=== PATIENT | male | born 1945 | race Caucasian/White ===

== ENCOUNTER 2017-07-06 08:44 | Inpatient (IN) | payer OTHER ==
[~2017-07-06] VITALS: Ht 180.3 cm; Wt 112.5 kg
--- NOTE | 2017-07-06 08:46 | EMERGENCY ROOM VISIT NOTE ---
ED Visit Note First contact with patient: 08:39 I have seen and examined this patient with Bruce Figueroa and generally agree with the treatment plan as discussed.
[2017-07-06] MEDS ORDERED: HYDROmorphone INJ 0.5 MG/0.5 ML SYR IV STA (08:51)
--- NOTE | 2017-07-06 09:00 | EMERGENCY ROOM VISIT NOTE ---
History First contact with patient: 08:41 Chief Complaint: ABDOMINAL PAIN Stated Complaint: ABDOMINAL PAIN Nursing Triage Summary: pt had gallbladder removed on Jun 21 at [facility] issues with surgery pt had leakage of bile into abd pt was given colostomy and inability to void, pt has manzo cath pt has no drainage in colostomy bag and scant in urine pt abd is distended and tender pt is poor historian on details of recent illness History of Present Illness The patient is a 72 year old male who presents to the Emergency Room via ambulance with complaints of "abdominal pain". The patient states that he is here today because he cannot urinate, but has severe lower abdominal pain. On June 21 he had a cholecystectomy performed at [facility], and since then he has had problems with bile and blood leaking internally. He states that she was then at [facility], and sent to [facility] and was discharged home yesterday. He notes that he awoke today and now has blood in his catheter, which is a Manzo catheter, as well as severe pain. He is tried urinate but only small dribbles come out. He has had 12 mg of morphine, and 4 mg of Zofran. A liter normal saline as well. He is still in pain rated as a 4-7/10. He denies any oral anticoagulants but notes he did have some at the hospital. He denies any chest pain, or shortness of breath. He denies any fevers or chills. He was also diagnosed with A. fib about 1 year ago following a seizure, but had done well until his second abdominal surgery over the past few weeks and developed A. fib again. Review of Systems A complete 10-point Review of Systems was discussed with the patient, with pertinent positives and negatives listed in the History of Present Illness. All remaining Review of Systems questions can be considered negative unless otherwise specified. Past Medical/Surgical History Medical Problems: (1) A-fib (2) Prostate abscess Cholecystectomy Family History No pertinent identified. Social History Smoking Status: Former Smoker Patient lives locally. Current/Historical Medications Scheduled Amoxicillin & Pot Clavulanate (Augmentin 875-125 mg), 1 TAB PO BID Aspirin (Aspirin 81), 81 MG PO DAILY Diltiazem Hcl Coated Beads (Cartia Xt), 300 MG PO DAILY Ezetimibe (Zetia), 10 MG PO DAILY Gabapentin (Neurontin), 300 MG PO TID Insulin Glargine (Lantus Solostar), 35 UNITS SC DAILY Insulin Lispro (Human) (Humalog), 6 UNITS SQ TID Levetiracetam (Keppra), 1,500 MG PO BID Levofloxacin (Levaquin), 500 MG PO DAILY Metoprolol Succ (Toprol Xl) (Toprol-Xl), 50 MG PO DAILY Pantoprazole (Protonix), 40 MG PO DAILY Potassium Ext Rel (Klor-Con), 20 MEQ PO BID Sertraline (Zoloft), 100 MG PO QAM Tamsulosin HCl (Tamsulosin HCl), 0.4 MG PO BID Physical Exam Vital Signs Date Time Temp Pulse Resp B/P (MAP) Pulse Ox O2 Delivery O2 Flow Rate FiO2 07/06/17 13:38 96 18 115/74 100 Room Air 07/06/17 13:15 98 Nasal Cannula 2.0 07/06/17 11:51 103 18 131/93 98 Nasal Cannula 2.0 07/06/17 10:00 98 20 102/68 95 07/06/17 09:23 94 07/06/17 09:20 113 21 106/59 94 Nasal Cannula 2.0 07/06/17 09:18 96 Nasal Cannula 2.0 07/06/17 08:54 36.7 93 20 130/72 92 Room Air Physical Exam VITAL SIGNS - Vital signs and nursing notes were reviewed. Stable. GENERAL -72-year-old male appearing his stated age who is in no acute distress. Communicates well with provider and answers questions appropriately. SKIN - there is bruising noted to the patient's left arm, abdomen likely from the surgical site. These are healing. HEAD - NC/AT. EYES - Sclera anicteric. EARS - No deformities of external structures noted on gross examination bilaterally. NOSE - Midline and without cyanosis. No epistaxis or purulent drainage noted. MOUTH/OROPHARYNX - Without perioral cyanosis. LUNGS - Chest wall symmetric without accessory muscle use, intercostals retractions, or central cyanosis. Normal vesicular breath sounds CTA B/L. No wheezes, rales, or rhonchi appreciated. CARDIAC - RRR with S1/S2. No murmur, rubs, or gallops appreciated. ABDOMEN - Abdominal contour normal without pulsations or visible masses. BS normoactive all four quadrants. There is inferior quadrant tenderness noted. Most of this is suprapubic. There is also a drain like apparatus in the inferior R quadrant. Manzo catheter in place. No palpable masses, hepatosplenomegaly, or ascites noted. EXTREMITIES - No clubbing or peripheral cyanosis. No pretibial edema present. NEUROLOGIC - Cranial nerves II through XII grossly intact. PSYCH - A&O, and cooperates fully with examiner. Pt is very pleasant and interacts well with examiner. Medical Decision & Procedures ER Provider Diagnostic Interpretation: CHEST ONE VIEW PORTABLE CLINICAL HISTORY: 72 years-old Male presenting with Pt c/o b/l leg swelling. TECHNIQUE: Portable upright AP view of the chest was obtained. COMPARISON: None. FINDINGS: Atherosclerosis of the aortic arch. Mildly tortuous descending thoracic aorta. Mildly prominent cardiac silhouette, which may be due to portable AP technique. Slight elevation of the left hemidiaphragm with bandlike opacity in the left lung base. No other focal infiltrate. No large effusion or pneumothorax. Osseous structures normal. Upper abdomen normal. IMPRESSION: 1. Left basilar atelectasis or scarring. 2. Cardiac silhouette mildly prominent, which may be due to portable AP technique. Electronically signed by: Garth Murry M.D. 07/06/2017 10:33 AM Dictated Date/Time: 07/06/2017 10:31 AM ABD/PELVIS IV CONTRAST ONLY CLINICAL HISTORY: 72 years-old Male presenting with Abdominal pain, history of cholecystectomy on 06/21/2017 at outside hospital, subsequent bile leak, colostomy, decreased urine output, distended and tender abdomen. TECHNIQUE: Multidetector CT of the abdomen and pelvis was performed after the administration of intravenous contrast. IV contrast: 92 mL of Optiray 320. A dose lowering technique was used consistent with the principles of ALARA (as low as reasonably achievable). COMPARISON: None. CT DOSE (mGy.cm): The estimated cumulative dose is 1457.72 mGy.cm. FINDINGS: Jewel Supervisor topogram: Unremarkable. Lung bases: Solid 3 mm subpleural pulmonary nodule in the right middle lobe (series 2 image 10). Minimal dependent changes in the left lung likely atelectasis. Mild enlargement of the left atrium suggested. Aortic valve calcification. No pericardial or pleural effusion. Liver: Congenital hypoplasia of the medial segments of the left hepatic lobe. No focal lesion. Patent hepatic vasculature. Biliary: No intrahepatic or extrahepatic biliary ductal dilatation. A common bile duct stent is in place, the superior extent terminating in the common duct immediately superior to the pancreatic head and the inferior extent terminating in the duodenum. Postsurgical changes of cholecystectomy. Fat infiltration noted in the gallbladder fossa without a focal fluid collection. No subcapsular fluid around the liver. Pancreas: Moderate parenchymal atrophy. Spleen: Parenchymal calcification may indicate prior granulomatous infection. Adrenal glands: Normal. Kidneys and ureters: Normal. No hydronephrosis. Bladder: Decompressed with a Manzo catheter. Associated intraluminal gas. Mild perivesicular inflammatory change anteriorly. Pelvic organs: Enlarged prostate containing multifocal regions of hypodensity, most prominently in a U shaped configuration along the posterior lateral aspect of the urethra, measuring up to 4.0 cm in transverse dimension. Bowel: Minimal reactive bowel wall thickening of the hepatic flexure. Appendix nonvisualized. No bowel obstruction. Several loops of small bowel are in direct apposition to the anterior abdominal wall subjacent to periumbilical inflammatory change and fluid. No ostomy is definitively visualized. Peritoneal cavity: No free fluid or intraperitoneal gas. Vasculature: Atherosclerosis of the normal caliber abdominal aorta. IVC patent. Lymph nodes: No enlarged lymph nodes in the abdomen or pelvis. Abdominal wall: Mild anasarca. Focal laminar fluid along the right anterior abdominal wall measuring 1.0 x 5.9 cm (series 2 image 62). 2 adjacent lobular collections of fluid are noted near the midline in the periumbilical region, one measuring 1.6 cm in diameter and the second deeper collection measuring 2.6 cm. Small fat-containing umbilical hernia. Musculoskeletal: Degenerative changes of the spine. IMPRESSION: 1. Inflammatory change in the gallbladder fossa without evidence of a fluid collection or bile leak on the today's imaging. This could be consistent with evolving postoperative changes of cholecystectomy. 2. Common bile duct stent. No biliary ductal dilatation. 3. No ostomy is appreciated. 4. Prostatomegaly with apparent fluid collection within the prostate. This raises concern for an abscess. This would be better demonstrated with contrast-enhanced MR of the prostate. Mild perivesicular fat stranding could indicate associated cystitis. Correlate with urinalysis. 5. Several superficial fluid collections in the anterior abdominal wall. These may represent seromas, although superimposed infection cannot be excluded given the adjacent fat stranding. 6. Mild anasarca. 7. 3 mm solid pulmonary nodule in the right middle lobe. Follow-up per Valent[employer] Society 2017 recommendations below. Please refer to below summary of Fleischner Society 2017 recommendations for follow-up of incidental CT nodules (Nuria Arredondo et al. Guidelines for management of incidental pulmonary nodules detected on CT images: From the Fleischner Society 2017. Radiology 2017; 284: 228-243.) SOLID NODULES Single nodule; size < 6 mm * Low risk patients: No routine follow-up * High risk patients: Optional CT at 12 months Single nodule; size 6-8 mm * Low risk patients: CT at 6-12 months, then consider CT at 18-24 months * High risk patients: CT at 6-12 months, then at 18-24 months Single nodule; size > 8 mm * Either low or high risk patients: Considered CT at 3 months, PET/CT, or tissue sampling Multiple nodules; size < 6 mm * Low risk patients: No routine follow up * High risk patients: Optional CT at 12 months Multiple nodules; size 6-8 mm * Low risk patients: CT at 3-6 months, then consider CT at 18-24 months * High risk patients: CT at 3-6 months, then at 18-24 months Multiple nodules; size > 8 mm * Low risk patients: CT at 3-6 months, then consider at 18-24 months * High risk patients: CT at 3-6 months, then at 18-24 months Note: These guidelines apply to incidental nodules. These guidelines do not apply to patients younger than 35 years, immunocompromised patients, or patients with cancer. * Low risk patients: Minimal or absent history of smoking and/or other known risk factors * High risk patients: History of smoking, exposure to other carcinogens, emphysema, fibrosis, upper lobe location, family history of lung cancer, etc. * If a nodule up to 8 mm is partly solid or is ground glass, further follow-up is required after 24 months to exclude possible slow growing adenocarcinoma. SUBSOLID NODULES Single ground-glass nodule * Nodule size < 6 mm: No routine follow-up * Nodule size > or = 6 mm: CT at 6-12 months to confirm persistence, then CT every 2 years until 5 years Single part-solid nodule * Nodule size < 6 mm: No routine follow-up * Nodules size > or = 6 mm: CT at 3-6 months to confirm persistence. If unchanged and solid component remains < 6 mm, annual CT should be performed for 5 years Multiple nodules * Nodule size < 6 mm: CT at 3-6 months. If stable, consider CT at 2 and 4 years. * Nodules size > or = 6 mm: CT at 3-6 months. Subsequent management based on the most suspicious nodule(s) VENOUS DOPPLER LWR EXT BILA CLINICAL HISTORY: 72 years-old Male presenting with Pt c/o b/l leg swelling. TECHNIQUE: Real-time grayscale and color and spectral Doppler ultrasound imaging of the veins of the bilateral lower extremities was performed. Compression and augmentation were also utilized. COMPARISON: None. FINDINGS: Right: Common femoral vein: Patent. Femoral vein: Patent. The mid and distal right femoral vein are poorly visualized. Greater saphenous vein: Patent. Popliteal vein: Patent. Calf veins: Patent. Left: Common femoral vein: Patent. Femoral vein: Patent. Greater saphenous vein: Patent. Popliteal vein: Patent. Calf veins: Patent. Other: Subcutaneous edema bilaterally. IMPRESSION: No evidence of deep venous thrombosis. Electronically signed by: Garth Murry M.D. 07/06/2017 11:48 AM Dictated Date/Time: 07/06/2017 11:47 AM Laboratory Results 07/06/17 08:10 Red Blood Count 5.30, Mean Corpuscular Volume 86.4, Mean Corpuscular Hemoglobin 30.9, Mean Corpuscular Hemoglobin Concent 35.8, Mean Platelet Volume 9.3, Neutrophils (%) (Auto) 87.5, Lymphocytes (%) (Auto) 3.7, Monocytes (%) (Auto) 7.5, Eosinophils (%) (Auto) 0.6, Basophils (%) (Auto) 0.1, Neutrophils # (Auto) 12.72, Lymphocytes # (Auto) 0.53, Monocytes # (Auto) 1.09, Eosinophils # (Auto) 0.08, Basophils # (Auto) 0.01 07/06/17 08:10 Test 07/06/17 08:10 07/06/17 09:06 07/06/17 10:07 White Blood Count 14.51 K/uL (4.8-10.8) Red Blood Count 5.30 M/uL (4.7-6.1) Hemoglobin 16.4 g/dL (14.0-18.0) Hematocrit 45.8 % (42-52) Mean Corpuscular Volume 86.4 fL (80-100) Mean Corpuscular Hemoglobin 30.9 pg (25-34) Mean Corpuscular Hemoglobin Concent 35.8 g/dl (32-36) Platelet Count 371 K/uL (130-400) Mean Platelet Volume 9.3 fL (7.4-10.4) Neutrophils (%) (Auto) 87.5 % Lymphocytes (%) (Auto) 3.7 % Monocytes (%) (Auto) 7.5 % Eosinophils (%) (Auto) 0.6 % Basophils (%) (Auto) 0.1 % Neutrophils # (Auto) 12.72 K/uL (1.4-6.5) Lymphocytes # (Auto) 0.53 K/uL (1.2-3.4) Monocytes # (Auto) 1.09 K/uL (0.11-0.59) Eosinophils # (Auto) 0.08 K/uL (0-0.5) Basophils # (Auto) 0.01 K/uL (0-0.2) RDW Standard Deviation 41.6 fL (36.4-46.3) RDW Coefficient of Variation 13.1 % (11.5-14.5) Immature Granulocyte % (Auto) 0.6 % Immature Granulocyte # (Auto) 0.08 K/uL (0.00-0.02) Prothrombin Time 12.0 SECONDS (9.0-12.0) Prothromb Time International Ratio 1.1 (0.9-1.1) Activated Partial Thromboplast Time 28.7 SECONDS (21.0-31.0) Partial Thromboplastin Ratio 1.1 Anion Gap 9.0 mmol/L (3-11) Est Creatinine Clear Calc Drug Dose 115.5 ml/min Estimated GFR () 107.3 Estimated GFR (Non- 92.5 BUN/Creatinine Ratio 22.2 (10-20) Calcium Level 8.6 mg/dl (8.5-10.1) Magnesium Level 1.7 mg/dl (1.8-2.4) Total Bilirubin 1.7 mg/dl (0.2-1) Aspartate Amino Transf (AST/SGOT) 21 U/L (15-37) Alanine Aminotransferase (ALT/SGPT) 34 U/L (12-78) Alkaline Phosphatase 199 U/L (45-117) Total Protein 6.2 gm/dl (6.4-8.2) Albumin 2.5 gm/dl (3.4-5.0) Globulin 3.7 gm/dl (2.5-4.0) Albumin/Globulin Ratio 0.7 (0.9-2) Urine Color YELLOW Urine Appearance CLOUDY (CLEAR) Urine pH >= 9.0 (4.5-7.5) Urine Specific Viper 1.019 (1.000-1.030) Urine Protein NEG (NEG) Urine Glucose (UA) NEG (NEG) Urine Ketones NEG (NEG) Urine Occult Blood 2+ (NEG) Urine Nitrite NEG (NEG) Urine Bilirubin NEG (NEG) Urine Urobilinogen NEG (NEG) Urine Leukocyte Esterase SMALL (NEG) Urine WBC (Auto) 5-10 /hpf (0-5) Urine RBC (Auto) >30 /hpf (0-4) Urine Hyaline Casts (Auto) 0 /lpf (0-5) Urine Epithelial Cells (Auto) 5-10 /lpf (0-5) Urine Bacteria (Auto) NEG (NEG) Total Creatine Kinase 78 U/L (39-308) Creatine Kinase MB 2.2 ng/ml (0.5-3.6) Creatine Kinase MB Ratio 2.8 (0-3.0) Troponin I < 0.015 ng/ml (0-0.045) Pro-B-Type Natriuretic Peptide 118 pg/ml (0-900) Medications Administered Medications (Trade) Dose Ordered Sig/Lea Route Start Time Stop Time Status Last Admin Dose Admin Hydromorphone HCl (Dilaudid Inj) 0.5 mg NOW STAT IV 07/06/17 08:51 07/06/17 08:54 DC 07/06/17 09:00 0.5 MG Piperacillin Sod/ Tazobactam Sod (Zosyn Iv) 4.5 gm NOW STAT IV 07/06/17 12:12 07/06/17 12:13 DC 07/06/17 13:35 4.5 GM Medical Decision Patient was seen and evaluated as above. He presents to the ambulance for abdominal pain in the suprapubic region. He does have a Manzo in place with a scant amount of blood. No urine. This was irrigated, and drained greater than 1 L of urine. He was feeling much better. He was given 0.5 mg of Dilaudid. There is leukocytosis of 14.51. No anemia. Coags normal. No evidence of kidney failure. Alkaline phosphatase is high at 109. Troponin negative. EKG reveals A. fib. Glucose high at 164. Urine reveals 2+ blood, white blood cells. There are greater than 30 red blood cells. I suspect she medic Manzo insertion. Chest x-ray no acute process. Ultrasound of the lower extremities are negative for DVT. CT was obtained, reveals collection possible in the prostate. I discussed the case with the attending physician who also personally evaluated the patient, as well as Dr. Weinstein. He is the on-call urologist. He came to personally evaluate the patient, and did not feel that at this time there was a true abscess, but does recommend potentially Zosyn and closely watching the patient. Actively this is reasonable, and discussed this with the hospitalist Dr. Morales. He agreed to evaluate the patient. Please refer to further documentation regarding the patient's stay. In evaluation treatment this patient following differential diagnoses were entertained: Abscess, sepsis, infection, urinary retention, prostate enlargement , among others. Impression Primary Impression: Abdominal pain Additional Impression: A-fib Departure Information Dispostion Admitted as an inpatient Condition FAIR Patient Instructions My [facility] Problem Qualifiers Primary Impression: Abdominal pain Abdominal location: lower abdomen, unspecified Qualified Codes: R10.30 - Lower abdominal pain, unspecified
[2017-07-06 09:03] LABS: BASO % 0.1 %; BASO ABS # 0.01 K/uL (0-0.2); COMPLETE YES; EOS % 0.6 %; HEMATOCRIT 45.8 % (42-52); IG% 0.6 %; LYMPH % 3.7 %; LYMPH ABS # 0.53 K/uL (1.2-3.4); MEAN CELL VOLUME 86.4 fL (80-100); MEAN CORPUSCULAR HEMOGLOBIN 30.9 pg (25-34); MEAN CORPUSCULAR HGB CONC 35.8 g/dl (32-36); MEAN PLATELET VOLUME 9.3 fL (7.4-10.4); MONO % 7.5 %; NEUT % 87.5 %; PLATELET COUNT 371 K/uL (130-400); WHITE BLOOD COUNT 14.51 K/uL (4.8-10.8)
[2017-07-06 09:13] LABS: INR 1.1 (0.9-1.1); PARTIAL THROMBOPLASTIN RATIO 1.1
[2017-07-06] MEDS ORDERED: DILT300C21 PO (09:29)
[2017-07-06] MEDS ORDERED: NVLNI SQ (09:29)
[2017-07-06] MEDS ORDERED: POTA20TA16 PO (09:29)
[2017-07-06 09:32] LABS: BUN/CREATININE RATIO 22.2 (10-20); CALCIUM 8.6 mg/dl (8.5-10.1); CREATININE 0.72 mg/dl (0.60-1.40); MAGNESIUM 1.7 mg/dl (1.8-2.4); POTASSIUM 3.6 mmol/L (3.5-5.1)
[2017-07-06 09:35] LABS: ALB/GLOB RATIO 0.7 (0.9-2)
[2017-07-06] MEDS ORDERED: ASPI-435 PO (09:44)
[2017-07-06] MEDS ORDERED: METO50TA7 PO (09:44)
[2017-07-06] MEDS ORDERED: LEVO1TAB33 PO (09:44)
[2017-07-06] MEDS ORDERED: AMOX875T PO (09:44)
[2017-07-06] MEDS ORDERED: EZET10TA63 PO (09:44)
[2017-07-06] MEDS ORDERED: SERT-234 PO (09:44)
[2017-07-06] MEDS ORDERED: GABA-113 PO (09:44)
[2017-07-06] MEDS ORDERED: INSDGIPEN SC (09:44)
[2017-07-06] MEDS ORDERED: NVLGIPEN SQ (09:44)
[2017-07-06] MEDS ORDERED: LEVE750T PO (09:44)
[2017-07-06] MEDS ORDERED: PANT40TA PO (09:44)
[2017-07-06] MEDS ORDERED: FLM4 PO (09:44)
[2017-07-06] MEDS ORDERED: INSU100I SQ (09:45)
[2017-07-06 09:47] LABS: URINE APPEARANCE CLOUDY (CLEAR); URINE BILIRUBIN NEG (NEG); URINE COLOR YELLOW; URINE NITRITE NEG (NEG); URINE PH >= 9.0 (4.5-7.5); URINE SPECIFIC GRAVITY 1.019 (1.000-1.030); UROBILINOGEN NEG (NEG); ZZURINE CULT IF INDIC CATH NO
[2017-07-06 09:52] LABS: MANUAL MICROSCOPIC REQUIRED? NO; REVIEW REQ? NO
--- NOTE | 2017-07-06 10:34 | DIAGNOSTIC IMAGING REPORT ---
CHEST ONE VIEW PORTABLE CLINICAL HISTORY: 72 years-old Male presenting with Pt c/o b/l leg swelling. TECHNIQUE: Portable upright AP view of the chest was obtained. COMPARISON: None. FINDINGS: Atherosclerosis of the aortic arch. Mildly tortuous descending thoracic aorta. Mildly prominent cardiac silhouette, which may be due to portable AP technique. Slight elevation of the left hemidiaphragm with bandlike opacity in the left lung base. No other focal infiltrate. No large effusion or pneumothorax. Osseous structures normal. Upper abdomen normal. IMPRESSION: 1. Left basilar atelectasis or scarring. 2. Cardiac silhouette mildly prominent, which may be due to portable AP technique. Electronically signed by: Garth Murry M.D. 07/06/2017 10:33 AM Dictated Date/Time: 07/06/2017 10:31 AM
[2017-07-06] MEDS ORDERED: OPTIRAY 320 IV PRN (10:45)
[2017-07-06 10:47] LABS: CKMB/CK RATIO 2.8 (0-3.0)
--- NOTE | 2017-07-06 11:03 | DIAGNOSTIC IMAGING REPORT ---
ABD/PELVIS IV CONTRAST ONLY CLINICAL HISTORY: 72 years-old Male presenting with Abdominal pain, history of cholecystectomy on 06/21/2017 at outside hospital, subsequent bile leak, colostomy, decreased urine output, distended and tender abdomen. TECHNIQUE: Multidetector CT of the abdomen and pelvis was performed after the administration of intravenous contrast. IV contrast: 92 mL of Optiray 320. A dose lowering technique was used consistent with the principles of ALARA (as low as reasonably achievable). COMPARISON: None. CT DOSE (mGy.cm): The estimated cumulative dose is 1457.72 mGy.cm. 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 Lung bases: Solid 3 mm subpleural pulmonary nodule in the right middle lobe (series 2 image 10). Minimal dependent changes in the left lung likely atelectasis. Mild enlargement of the left atrium suggested. Aortic valve calcification. No pericardial or pleural effusion. Liver: Congenital hypoplasia of the medial segments of the left hepatic lobe. No focal lesion. Patent hepatic vasculature. Biliary: No intrahepatic or extrahepatic biliary ductal dilatation. A common bile duct stent is in place, the superior extent terminating in the common duct immediately superior to the pancreatic head and the inferior extent terminating in the duodenum. Postsurgical changes of cholecystectomy. Fat infiltration noted in the gallbladder fossa without a focal fluid collection. No subcapsular fluid around the liver. Pancreas: Moderate parenchymal atrophy. Spleen: Parenchymal calcification may indicate prior granulomatous infection. Adrenal glands: Normal. Kidneys and ureters: Normal. No hydronephrosis. Bladder: Decompressed with a Vargas catheter. Associated intraluminal gas. Mild perivesicular inflammatory change anteriorly. Pelvic organs: Enlarged prostate containing multifocal regions of hypodensity, most prominently in a U shaped configuration along the posterior lateral aspect of the urethra, measuring up to 4.0 cm in transverse dimension. Bowel: Minimal reactive bowel wall thickening of the hepatic flexure. Appendix nonvisualized. No bowel obstruction. Several loops of small bowel are in direct apposition to the anterior abdominal wall subjacent to periumbilical inflammatory change and fluid. No ostomy is definitively visualized. Peritoneal cavity: No free fluid or intraperitoneal gas. Vasculature: Atherosclerosis of the normal caliber abdominal aorta. IVC patent. Lymph nodes: No enlarged lymph nodes in the abdomen or pelvis. Abdominal wall: Mild anasarca. Focal laminar fluid along the right anterior abdominal wall measuring 1.0 x 5.9 cm (series 2 image 62). 2 adjacent lobular collections of fluid are noted near the midline in the periumbilical region, one measuring 1.6 cm in diameter and the second deeper collection measuring 2.6 cm. Small fat-containing umbilical hernia. Musculoskeletal: Degenerative changes of the spine. IMPRESSION: 1. Inflammatory change in the gallbladder fossa without evidence of a fluid collection or bile leak on the today's imaging. This could be consistent with evolving postoperative changes of cholecystectomy. 2. Common bile duct stent. No biliary ductal dilatation. 3. No ostomy is appreciated. 4. Prostatomegaly with apparent fluid collection within the prostate. This raises concern for an abscess. This would be better demonstrated with contrast-enhanced MR of the prostate. Mild perivesicular fat stranding could indicate associated cystitis. Correlate with urinalysis. 5. Several superficial fluid collections in the anterior abdominal wall. These may represent seromas, although superimposed infection cannot be excluded given the adjacent fat stranding. 6. Mild anasarca. 7. 3 mm solid pulmonary nodule in the right middle lobe. Follow-up per Valentino Society 2017 recommendations below. Please refer to below summary of Fleischner Society 2017 recommendations for follow-up of incidental CT nodules (H Maria Elena, et al. Guidelines for management of incidental pulmonary nodules detected on CT images: From the Fleischner Society 2017. Radiology 2017; 284: 228-243.) SOLID NODULES Single nodule; size < 6 mm * Low risk patients: No routine follow-up * High risk patients: Optional CT at 12 months Single nodule; size 6-8 mm * Low risk patients: CT at 6-12 months, then consider CT at 18-24 months * High risk patients: CT at 6-12 months, then at 18-24 months Single nodule; size > 8 mm * Either low or high risk patients: Considered CT at 3 months, PET/CT, or tissue sampling Multiple nodules; size < 6 mm * Low risk patients: No routine follow up * High risk patients: Optional CT at 12 months Multiple nodules; size 6-8 mm * Low risk patients: CT at 3-6 months, then consider CT at 18-24 months * High risk patients: CT at 3-6 months, then at 18-24 months Multiple nodules; size > 8 mm * Low risk patients: CT at 3-6 months, then consider at 18-24 months * High risk patients: CT at 3-6 months, then at 18-24 months Note: These guidelines apply to incidental nodules. These guidelines do not apply to patients younger than 35 years, immunocompromised patients, or patients with cancer. * Low risk patients: Minimal or absent history of smoking and/or other known risk factors * High risk patients: History of smoking, exposure to other carcinogens, emphysema, fibrosis, upper lobe location, family history of lung cancer, etc. * If a nodule up to 8 mm is partly solid or is ground glass, further follow-up is required after 24 months to exclude possible slow growing adenocarcinoma. SUBSOLID NODULES Single ground-glass nodule * Nodule size < 6 mm: No routine follow-up * Nodule size > or = 6 mm: CT at 6-12 months to confirm persistence, then CT every 2 years until 5 years Single part-solid nodule * Nodule size < 6 mm: No routine follow-up * Nodules size > or = 6 mm: CT at 3-6 months to confirm persistence. If unchanged and solid component remains < 6 mm, annual CT should be performed for 5 years Multiple nodules * Nodule size < 6 mm: CT at 3-6 months. If stable, consider CT at 2 and 4 years. * Nodules size > or = 6 mm: CT at 3-6 months. Subsequent management based on the most suspicious nodule(s) Electronically signed by: Garth Murry M.D. 07/06/2017 11:02 AM Dictated Date/Time: 07/06/2017 10:50 AM
--- NOTE | 2017-07-06 11:50 | DIAGNOSTIC IMAGING REPORT ---
VENOUS DOPPLER LWR EXT BILA CLINICAL HISTORY: 72 years-old Male presenting with Pt c/o b/l leg swelling. TECHNIQUE: Real-time grayscale and color and spectral Doppler ultrasound imaging of the veins of the bilateral lower extremities was performed. Compression and augmentation were also utilized. COMPARISON: None. FINDINGS: Right: Common femoral vein: Patent. Femoral vein: Patent. The mid and distal right femoral vein are poorly visualized. Greater saphenous vein: Patent. Popliteal vein: Patent. Calf veins: Patent. Left: Common femoral vein: Patent. Femoral vein: Patent. Greater saphenous vein: Patent. Popliteal vein: Patent. Calf veins: Patent. Other: Subcutaneous edema bilaterally. IMPRESSION: No evidence of deep venous thrombosis. Electronically signed by: Garth Murry M.D. 07/06/2017 11:48 AM Dictated Date/Time: 07/06/2017 11:47 AM
[2017-07-06] MEDS ORDERED: PIPERACILLIN/TAZOBACTAM 4.5 GM/100ML D5W IV STA (12:12)
--- NOTE | 2017-07-06 12:25 | Urology Consultation ---
History General Date of Service: Jul 06, 2017. Primary Care Physician: Lawanda Verdugo M.D. Pt seen a urologist before?: No History of Present Illness 72y/o male s/p cholecystectomy in [place] on 06/21 with numerous complications - initial surgery - uneventful - return to OR within 48hrs after port site hernia and bowel obstruction? - post procedure, started to have bile draining through a separate incision ( now covered with colostomy bag) - determined to have a missed duct? - endoscopic management in [place] - PICC line and IV abx now - recently discharged (family stating he was not doing well at the time of d/c) - in the midst of these other issues - diagnosed with afib and varying rate - urinary retention (numerous catheterizations during his hospitalization ( catheter in place at time of arrival here)) - they deny fevers in the past 24 hrs - some blood in the urine - some dysuria CT - appears to have some fluid within the central zone of the prostate - can't ro abscess - numerous other intra-abdominal findings as well - sounds as though he was obstructed on arrival here, and now reports significant improvement in his symptoms Imaging Imaging: CT Laboratory Labs were reviewed and are within normal limits unless listed below. Labs are available in the chart and at [facility] Past History A Fib, bowel obstruction, BPH Past Surgical History: cholecystectomy, other (endsocopic management of a bile duct leak; open ventral hernia repair; bowel obstruction/port site hernia repair ) Family History non-contrib in the acute setting Social History Hx Tobacco Use In Past Year?: No Marital status: Allergies Coded Allergies: Atorvastatin (Unverified Allergy, Unknown, UNKNOWN, 07/06/17) Carbamazepine (Unverified Allergy, Unknown, UNKNOWN, 07/06/17) Metformin (Unverified Allergy, Unknown, UNKNOWN, 07/06/17) Methadone (Unverified Allergy, Unknown, UNKNOWN, 07/06/17) Pravastatin (Unverified Allergy, Unknown, UNKNOWN, 07/06/17) Rosuvastatin (Unverified Allergy, Unknown, UNKNOWN, 07/06/17) Tramadol (Unverified Allergy, Unknown, UNKNOWN, 07/06/17) Medications Home Medications: Home Meds and Scripts Medications Dose Route/Sig Max Daily Dose Days Date Category Humalog (Insulin Lispro (Human)) 100 Unit/Ml Inj 6 Units SQ TID 07/06/17 Reported Tamsulosin HCl 0.4 Mg Cap 0.4 Mg PO BID 07/06/17 Reported Zoloft (Sertraline HCl) 100 Mg Tab 100 Mg PO QAM 07/06/17 Reported Keppra (Levetiracetam) 750 Mg Tab 1,500 Mg PO BID 07/06/17 Reported Zetia (Ezetimibe) 10 Mg Tab 10 Mg PO DAILY 07/06/17 Reported Aspirin 81 (Aspirin) 81 Mg Tab 81 Mg PO DAILY 07/06/17 Reported Lantus Solostar (Insulin Glargine) 100 Unit/Ml Inj 35 Units SC DAILY 07/06/17 Reported Toprol-Xl (Metoprolol Succinate) 50 Mg Tabcr 50 Mg PO DAILY 07/06/17 Reported Protonix (Pantoprazole Sodium) 40 Mg Tab 40 Mg PO DAILY 07/06/17 Reported Levaquin (Levofloxacin) 500 Mg Tab 500 Mg PO DAILY 7 07/06/17 Reported Neurontin (Gabapentin) 300 Mg Cap 300 Mg PO TID 07/06/17 Reported Augmentin 875-125 mg (Amoxicillin & Pot Clavulanate) 1 Tab Tab 1 Tab PO BID 07/06/17 Reported Cartia Xt (Diltiazem Hcl Coated Beads) 300 Mg Cap 300 Mg PO DAILY 07/06/17 Reported Klor-Con (Potassium Chloride) 20 Meq Tabcr 20 Meq PO BID 07/06/17 Reported Inpatient Medications: Current Inpatient Medications Medications (Trade) Dose Ordered Sig/Lea Route Start Time Stop Time Status Last Admin Dose Admin Ioversol (Optiray 320) 100 ml UD PRN IV 07/06/17 10:45 07/10/17 10:44 Review of Systems Review of Systems Constitutional: No see HPI, No fever, No chills, No frequent headaches, No weight loss, No problem reported Eyes: No see HPI, No blurred vision, No double vision, No eye pain, No loss of night vision, No problem reported Neurological: No see HPI, No dizzy, No passing out, No numbness/tingling, No seizures, No problem reported Gastrointestinal: + abdominal pain, + nausea, + vomiting Cardiovascular: + irregular heartbeat Respiratory: No shortness of breath Skin: + rash (significant ecchymosis of each arm\) Musculoskeletal: No see HPI, No joint pain, No neck pain, No back pain, No arthritis, No problem reported Blood / Lymphatic: No see HPI, No bleed easily, No bruise easily, No swollen glands, No problem reported Ears / Nose / Throat: No see HPI, No hearing loss, No sinus, No hoarse voice, No sore throat, No problem reported Psychologic / Mental: No see HPI, No nervous, No trouble remembering, No difficulty sleeping, No problem reported Male : + frequent urination, + painful urination, + urinary retention, + blood in urine All Other Systems: Reviewed and Negative Additional Comments: significant abdominal issues Physical Exam Vital Signs: Vital Signs Past 12 Hours Date Time Temp Pulse Resp B/P (MAP) Pulse Ox O2 Delivery O2 Flow Rate FiO2 07/06/17 11:51 103 18 131/93 98 Nasal Cannula 2.0 07/06/17 10:00 98 20 102/68 95 07/06/17 09:23 94 07/06/17 09:20 113 21 106/59 94 Nasal Cannula 2.0 07/06/17 09:18 96 Nasal Cannula 2.0 07/06/17 08:54 36.7 93 20 130/72 92 Room Air Physical Exam: General Appearance: no apparent distress (comfortable appearing) Eyes: bilateral eyes normal inspection ENT: hearing grossly normal Neck: no adenopathy Respiratory/Chest: no respiratory distress Cardiovascular: no edema, + tachycardia, + irregularly irregular Gastrointestinal: Abdomen: pertinent finding (colostomy over a periumbilical port with serous drainage. other incisions without purulence. NO rebound, no guarding, no significant erythema, no crepitus.) Bladder: normal bladder Renal: normal renal Genitourinary - Male: Penis: normal penis (catheter in place.) Anus / Perineum: normal anus/perineum (no erytjema, no fluctuance) Prostate: pertinent finding (deferred secondary to question of acute prostatitis) Neurologic/Psychiatric: alert, normal mood/affect, oriented x 3 Skin: warm/dry Lymphatic: no adenopathy Assessment & Plan Assessment & Plan Urinary retention; question of prostate abscess - all in the setting of a very complicated post cholecystectomy course - reviewed hx and imaging - discussed options with the family - the CT raises concerns for possible abscess, and his story would make him at high risk - clinically, he is not showing signs of acute prostatitis or abscess aside from a leukocytosis of 14K (with numerous other contributing factors) - I favor conservative management for now - IV abx - cont catheter - if he shows signs of clinical decline or symptoms consistent with prostate abscess --> contrast enhanced study and consideration of surgical drainage
[2017-07-06 13:15] VITALS: O2SAT 98; BMI 34.5
[2017-07-06] MEDS ORDERED: MAGNESIUM HYDROXIDE SUSP 30 ML UDC PO PRN (13:30)
[2017-07-06] MEDS ORDERED: NITROGLYCERIN 0.4 MG SL PER TAB CHARGE SL PRN (13:30)
[2017-07-06] MEDS ORDERED: ACETAMINOPHEN 325 MG TAB PO PRN (13:30)
[2017-07-06] MEDS ORDERED: ONDANSETRON INJ 2 MG/ML 2 ML VIAL IV PRN (13:30)
[2017-07-06] MEDS ORDERED: ALUMINUM/MAGNESIUM/SIMETH (MAALOX MAX) 30 ML UDC PO PRN (13:30)
[2017-07-06] MEDS ORDERED: HEPARIN IV LOW DOSE NO BOLUS STA (13:33)
[2017-07-06] MEDS ORDERED: PIPERACILL/TAZOBAC CONSULT ACTIVE PRN (13:45)
[2017-07-06] MEDS ORDERED: HEPARIN 25000 UNIT/500 ML D5W ONE (14:12)
[2017-07-06] MEDS: MoRPHine SULFATE 2 MG/ML CARP IV PRN (14:27)
--- NOTE | 2017-07-06 14:54 | HISTORY & PHYSICAL EXAMINATION ---
DATE OF ADMISSION: 07/06/2017 CHIEF COMPLAINT: Abdominal pain and unable to urinate. HISTORY OF PRESENT ILLNESS: This is a 72-year-old male with past medical history significant for seizures, hypertension, hyperlipidemia, type 2 diabetes who presents with unable to urinate and abdominal pain. The patient recently on 21 of June had cholecystectomy done at [facility] from which he developed complications for which he was readmitted. He was having some abdominal pain and was reoperated and as per he had a couple of sutures came out and they had to fix it. During the hospitalization he developed a rapid atrial fibrillation and was transferred to [facility] and at [facility] he was found to have small-bowel obstruction and bowel hernia and stayed there over a week.During his stay in [place] again he developed leakage leaking around his abdominal surgery and again endoscopy was done which showed any other gall bladder duct stented. He also has a colostomy bag. The patient had Vargas catheter because he was having issues with urinary retention from enlarged prostate but today morning he woke up he and had severe abdominal pain and was not able to urinate and he was brought in here. There was problem with catheter bulb and it was fixed and he is feeling better now but CAT scan done in the ER showed possible prostate abscess so urology saw him and advised to stay in the hospital. We were called for admission. The patient currently is hemodynamically stable. Denies any headaches, no blurred vision, has sore throat from recent procedure. No difficulty swallowing. No chest pain, no shortness of breath, no cough, no fever, no chills, no nausea, no abdominal pain currently. He also developed swelling in his legs since his hospitalization, he developed some whitish rash in his lower extremities and was attributed to Eliquis which was started at [place] and was stopped. Currently resting comfortably and hemodynamically stable. ALLERGIES: ATORVASTATIN, CARBAMAZEPINE, METFORMIN, METHADONE, PRAVASTATIN, TRAMADOL. PAST MEDICAL HISTORY: As mentioned above. PAST SURGICAL HISTORY: Excision of lipoma, incisional hernia repair, revision of the palate for obstructive sleep apnea. MEDICATIONS: The patient is on gabapentin 300 mg p.o. t.i.d., Flomax 0.4 mg p.o. b.i.d., Keppra 1500 mg p.o. b.i.d., Lantus 35 units at bedtime, insulin sliding scale, meloxicam, Levaquin 500 mg p.o. daily, Augmentin 1 tablet p.o. b.i.d., potassium chloride 20 mEq p.o. b.i.d., aspirin 81 mg p.o. daily, diltiazem 300 mg p.o. daily, Zetia 10 mg p.o. daily, Toprol-XL 50 mg p.o. daily, Protonix 40 mg p.o. daily, Zoloft 100 mg p.o. daily. FAMILY HISTORY: Significant for mother had diabetes. Father had peptic ulcer disease. SOCIAL HISTORY: Quit smoking in 1991. Social alcohol occasionally. No drug use. He is and lives with his . REVIEW OF SYMPTOMS: As per HPI. Rest of review of symptoms negative. PHYSICAL EXAMINATION: GENERAL: The patient is of moderate build, not in distress. VITAL SIGNS: Temperature 36.7, pulse 103, respiratory rate 18, blood pressure 131/93, oxygen 98 on 2 liters. HEAD, EYES, EARS, NOSE, AND THROAT: No pallor, no icterus. Pupils equal, round, and reactive to light. NECK: No JVD, no neck masses, no carotid bruits. CARDIOVASCULAR: S1, S2 heard. Regular rhythm, no murmur, no gallop. RESPIRATORY SYSTEM: Normal AP diameter. No accessory muscle use. No wheezing, no crackles. ABDOMEN: Soft, bowel sounds present. Nontender. No distention. CENTRAL NERVOUS SYSTEM: Cranial nerves II-XII grossly intact. Nonfocal. EXTREMITIES: No erythema. Lower extremity edema present, whitish papular rash seen in the lower extremities. Urinalysis positive for leukocyte esterase. LABORATORY DATA: WBC 14.5, hemoglobin 16.4, hematocrit 45.8, platelets 371. Sodium 138, potassium 3.6, chloride 101, bicarb 28, BUN 16, creatinine 0.7, serum glucose 164, calcium 8.6, magnesium 1.7, total bilirubin 1.7, AST 21, ALT 34, alkaline phosphatase 119, total creatine kinase 78. CK-MB 2.2, troponin I less than 0.015. PT 12.0, INR 1.1, PTT 28.7. Venous Doppler study, no evidence of DVT. Chest x-ray left bibasilar scaring unremarkable. CT of the abdomen and pelvis inflammatory changes in the gallbladder fossa without evidence of fluid collection or bile leak. This could be consistent with evolving postoperative changes of cholecystectomy, common bile duct stent, no biliary ductal dilatation. Prostatomegaly with apparent fluid collection within the prostate. This is concern for abscess. of prostate. possible cystitis. Superficial fluid collection in anterior abdominal wall, this may represent seroma or superimposed infection. mild anasarca, 3 mm solid pulmonary nodule in the right middle lobe. Followup recommended. EKG shows AFib with a rate of 94. No acute ST changes seen. ASSESSMENT AND PLAN: This is a 72-year-old male who presents with urinary retention, prostate abscess. 1. Urinary retention, possible prostate abscess. Started on IV Zosyn. The patient is on Vargas catheter, seen by urology. If no improvement plan for MR and possible drainage, monitor in the tele floor. 2. Atrial fibrillation diagnosed last year but no regular followup. Was in rapid Afib in the [facility] and transferred to [place]. Currently on Cardizem and metoprolol. Could not tolerate Eliquis. Will start on low dose IV heparin and consult cardiology in a.m. for further recommendations. 3. Recent cholecystectomy with complications, colostomy bag and biliary stent placement. Need followup. CAT scan showed some possible seroma vs infection abdominal wall. We will monitor. 4. Diabetes. Continue home Lantus. Will place him on insulin sliding scale. 5. History of seizures. Continue Keppra. 6. History of benign prostatic hypertrophy. Continue Flomax. 7. History of hyperlipidemia. Continue Zetia. 8. History of hypertension. Continue metoprolol and Cardizem. 9. History of depression. Continue Zoloft. 10. Deep venous thrombosis prophylaxis, low dose IV heparin. DISPOSITION: Admit to tele floor. 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 LEVEL 1 FULL CODE. MTDD
[2017-07-06] MEDS: HEPARIN 25,000 UNIT/500ML D5W 500 ML IV PRN ×2 (15:23→23:01)
[2017-07-06 15:45] VITALS: BP 110/70; PULSE 72; TEMP 36.5; O2SAT 99
[2017-07-06 16:00] VITALS: O2SAT 99
[2017-07-06] MEDS: GABAPENTIN 300 MG CAP PO SCH ×2 (16:40→21:01)
[2017-07-06 19:06] VITALS: BP 134/75; PULSE 91; TEMP 36.1; O2SAT 92
[2017-07-06] MEDS: TAMSULOSIN HCL 0.4 MG CAP PO SCH (21:01)
[2017-07-06] MEDS: PIPERACILL/TAZOBAC IV 4.5 GM in DEXTROSE 5% 100ML 100 ML IV SCH (21:02)
[2017-07-06] MEDS: LEVETIRACETAM 500 MG TAB PO SCH (21:02)
[2017-07-06 21:36] LABS: PARTIAL THROMBOPLASTIN RATIO 1.5
[2017-07-06] MEDS ORDERED: HEPARIN IV BOLUS 4,500 UNIT in SYRINGE 0 ML IV ONE (22:45)
[2017-07-06] MEDS ORDERED: INSULIN GLARGINE SOLOSTAR 100 UNITS/ML 3 ML PEN SC ONE (23:41)
[2017-07-06] MEDS ORDERED: INSULIN ASPART 100 UNITS/ML 3 ML PEN SC ONE (23:41)
[2017-07-06] MEDS ORDERED: GLUCAGON FOR INJ 1 MG VIAL SQ PRN (23:45)
[2017-07-06] MEDS ORDERED: GLUCOSE 10 TABS/TUBE PO PRN (23:45)
[2017-07-06] MEDS ORDERED: DEXTROSE 50% 50 ML SYR IV PRN (23:45)
[2017-07-06] MEDS ORDERED: SODIUM CHLORIDE 0.9% 1000ML 1,000 ML IV ONE (23:45)
[2017-07-06] MEDS ORDERED: GLUCOSE 40% GEL 15 GM TUBE PO PRN (23:45)
[2017-07-07] VITALS (9 sets, daily range): BP systolic 101–129; BP diastolic 59–75; PULSE 73–92; TEMP 36.5–37; O2SAT 92–98
[2017-07-07] MEDS ORDERED: MAGNESIUM SULFATE 1GM / D5W 1 GM in PREMIXED IN D5W 100 ML IV ONE
[2017-07-07] MEDS: MoRPHine SULFATE 2 MG/ML CARP IV PRN ×4 (00:22→20:23)
[2017-07-07] MEDS: PIPERACILL/TAZOBAC IV 4.5 GM in DEXTROSE 5% 100ML 100 ML IV SCH ×3 (04:00→20:09)
[2017-07-07 04:55] LABS: CALCIUM 7.8 mg/dl (8.5-10.1); CREATININE 0.68 mg/dl (0.60-1.40); MAGNESIUM 2.1 mg/dl (1.8-2.4); POTASSIUM 3.9 mmol/L (3.5-5.1)
[2017-07-07 04:59] LABS: PARTIAL THROMBOPLASTIN RATIO 2.3
[2017-07-07 05:41] LABS: BASO % 0.4 %; BASO ABS # 0.03 K/uL (0-0.2); COMPLETE YES; HEMATOCRIT 38.9 % (42-52); IG% 0.7 %; LYMPH % 8.9 %; LYMPH ABS # 0.74 K/uL (1.2-3.4); MEAN CELL VOLUME 88.6 fL (80-100); MEAN CORPUSCULAR HEMOGLOBIN 30.5 pg (25-34); MEAN CORPUSCULAR HGB CONC 34.4 g/dl (32-36); MEAN PLATELET VOLUME 8.9 fL (7.4-10.4); MONO % 8.3 %; NEUT % 76.7 %; PLATELET COUNT 264 K/uL (130-400); RED BLOOD COUNT 4.39 M/uL (4.7-6.1); WHITE BLOOD COUNT 8.27 K/uL (4.8-10.8)
[2017-07-07] MEDS ORDERED: INSULIN ASPART 100 UNITS/ML 3 ML PEN SC ONE (06:00)
[2017-07-07] MEDS ORDERED: INSULIN GLARGINE SOLOSTAR 100 UNITS/ML 3 ML PEN SC ONE (06:00)
[2017-07-07] MEDS ORDERED: INSULIN ASPART 100 UNITS/ML 3 ML PEN SC SCH (07:00)
[2017-07-07] MEDS: ASPIRIN 81 MG ECTAB PO SCH (08:20)
[2017-07-07] MEDS: TAMSULOSIN HCL 0.4 MG CAP PO SCH ×2 (08:20→20:09)
[2017-07-07] MEDS: GABAPENTIN 300 MG CAP PO SCH ×3 (08:21→20:09)
[2017-07-07] MEDS: LEVETIRACETAM 500 MG TAB PO SCH ×2 (08:21→20:09)
[2017-07-07] MEDS: PANTOprazole SOD 40 MG TAB PO SCH (08:21)
[2017-07-07] MEDS: METOPROLOL SUCC 50MG EXT REL TAB PO SCH (08:22)
[2017-07-07] MEDS: EZETIMIBE 10MG TAB PO SCH (08:22)
[2017-07-07] MEDS: SERTRALINE HCL 100 MG TAB PO SCH (08:22)
[2017-07-07] MEDS: INSULIN ASPART 100 UNITS/ML 3 ML PEN SC SCH ×4 (08:27→20:27)
[2017-07-07] MEDS ORDERED: INSULIN GLARGINE SOLOSTAR 100 UNITS/ML 3 ML PEN SC SCH ×2 (09:00→21:00)
[2017-07-07] MEDS ORDERED: DILTIAZEM HCL 300 MG CAPCR PO SCH (09:00)
--- NOTE | 2017-07-07 09:37 | Progress Note ---
Subjective Date of Service: Jul 07, 2017. Subjective Pt evaluation today including: conversation w/ patient, physical exam, chart review, lab review Voiding: manzo catheter in place Significant improvement overnight - some irritation in the penis, no other subjective complaints - no abdominal pain - no fevers - tolerating a diet Problem List Medical Problems: (1) Abdominal pain Status: Acute Review of Systems Constitutional: No see HPI, No fever, No chills, No sweats, No weight loss, No weakness, No fatigue, No problem reported Abdomen: + problem reported (continued clear/green tinted drainage from his umbilical incision (stoma bag ove it)), No pain, No nausea Objective Vital Signs Date Time Temp Pulse Resp B/P (MAP) Pulse Ox O2 Delivery O2 Flow Rate FiO2 07/07/17 07:35 36.7 75 17 101/75 (84) 96 Room Air 07/07/17 04:17 36.7 92 19 101/75 (84) 92 Room Air 07/07/17 04:00 Room Air 07/07/17 00:20 36.6 81 20 118/71 (87) 93 Room Air 07/07/17 00:00 Room Air 07/06/17 20:00 Room Air 07/06/17 19:06 36.1 91 18 134/75 (94) 92 Room Air 07/06/17 16:00 99 Nasal Cannula 2.0 07/06/17 15:45 36.5 72 24 110/70 (83) 99 Nasal Cannula 2.0 07/06/17 13:38 96 18 115/74 100 Room Air 07/06/17 13:15 98 Nasal Cannula 2.0 07/06/17 11:51 103 18 131/93 98 Nasal Cannula 2.0 07/06/17 10:00 98 20 102/68 95 Physical Exam General Appearance: no apparent distress Eyes: normal inspection ENT: hearing grossly normal Respiratory/Chest: no respiratory distress, no accessory muscle use Cardiovascular: no edema, + irregularly irregular Abdomen: non tender, soft, + pertinent finding (no signs of infection - stoma bag over his umbilical incision - clear/slightly green tinted drainage) Extremities: no pedal edema Neurologic/Psychiatric: alert, normal mood/affect, oriented x 3 Skin: warm/dry Lymphatic: no adenopathy Comments: manzo with clear urine Laboratory Results Last 24 Hours Test 07/06/17 10:07 07/06/17 16:10 07/06/17 20:01 07/06/17 21:14 Total Creatine Kinase 78 U/L Creatine Kinase MB 2.2 ng/ml Creatine Kinase MB Ratio 2.8 Troponin I < 0.015 ng/ml Pro-B-Type Natriuretic Peptide 118 pg/ml Bedside Glucose 222 mg/dl 299 mg/dl Activated Partial Thromboplast Time 39.6 SECONDS Partial Thromboplastin Ratio 1.5 Test 07/06/17 23:36 07/07/17 04:30 07/07/17 06:36 07/07/17 09:16 Bedside Glucose 242 mg/dl 267 mg/dl White Blood Count 8.27 K/uL Red Blood Count 4.39 M/uL Hemoglobin 13.4 g/dL Hematocrit 38.9 % Mean Corpuscular Volume 88.6 fL Mean Corpuscular Hemoglobin 30.5 pg Mean Corpuscular Hemoglobin Concent 34.4 g/dl Platelet Count 264 K/uL Mean Platelet Volume 8.9 fL Neutrophils (%) (Auto) 76.7 % Lymphocytes (%) (Auto) 8.9 % Monocytes (%) (Auto) 8.3 % Eosinophils (%) (Auto) 5.0 % Basophils (%) (Auto) 0.4 % Neutrophils # (Auto) 6.34 K/uL Lymphocytes # (Auto) 0.74 K/uL Monocytes # (Auto) 0.69 K/uL Eosinophils # (Auto) 0.41 K/uL Basophils # (Auto) 0.03 K/uL RDW Standard Deviation 44.0 fL RDW Coefficient of Variation 13.5 % Immature Granulocyte % (Auto) 0.7 % Immature Granulocyte # (Auto) 0.06 K/uL Activated Partial Thromboplast Time 59.9 SECONDS Partial Thromboplastin Ratio 2.3 Sodium Level 137 mmol/L Potassium Level 3.9 mmol/L Chloride Level 99 mmol/L Carbon Dioxide Level 32 mmol/L Anion Gap 6.0 mmol/L Blood Urea Nitrogen 14 mg/dl Creatinine 0.68 mg/dl Est Creatinine Clear Calc Drug Dose 123.2 ml/min Estimated GFR () 109.8 Estimated GFR (Non- 94.7 BUN/Creatinine Ratio 20.0 Random Glucose 268 mg/dl Calcium Level 7.8 mg/dl Magnesium Level 2.1 mg/dl Assessment and Plan Complicated post op course after cholecystectomy ; question of prostate abscess - CT is concerning, but clinically, he is doing quite well with conservative management - favor continuing this course rather than any surgical intervention right now ( very large prostate) - will need prostate directed abx for at least 14d - keep catheter for at least 48hrs longer - if home prior to that time, plan for outpt voiding trial next week - home with tamsulosin and finasteride (no meds prior to his cholecystectomy, but longstanding voiding difficulties)
[2017-07-07 10:00] LABS: CALCIUM 8.1 mg/dl (8.5-10.1); CREATININE 0.77 mg/dl (0.60-1.40); POTASSIUM 3.5 mmol/L (3.5-5.1)
--- NOTE | 2017-07-07 10:53 | Surgery Consultation ---
Consultation Date of Consultation: Jul 07, 2017. Attending Physician: Chano Saunders MD History of Present Illness pt with lap moreno done at an outside facility a couple of weeks ago complicated by a biliary leak...ERCP with stent placement was performed according to him about a week ago. he has also been dealing with urinary retention/prostatitis which is what brought him in this admission. his upper abdomen is feeling ok and he is eating/bowels moving etc... he does have some serous fluid with a tinge of bile coming out his umbilical incision. cardiology also seeing him for a-fib Past Medical/Surgical History Medical Problems: (1) Abdominal pain Status: Acute Social History Smoking Status: Former Smoker Marital Status: Allergies Coded Allergies: Atorvastatin (Unverified Allergy, Unknown, UNKNOWN, 07/06/17) Carbamazepine (Unverified Allergy, Unknown, UNKNOWN, 07/06/17) Metformin (Unverified Allergy, Unknown, UNKNOWN, 07/06/17) Methadone (Unverified Allergy, Unknown, UNKNOWN, 07/06/17) Pravastatin (Unverified Allergy, Unknown, UNKNOWN, 07/06/17) Rosuvastatin (Unverified Allergy, Unknown, UNKNOWN, 07/06/17) Tramadol (Unverified Allergy, Unknown, UNKNOWN, 07/06/17) Home Medications Scheduled Amoxicillin & Pot Clavulanate (Augmentin 875-125 mg), 1 TAB PO BID Aspirin (Aspirin 81), 81 MG PO DAILY Diltiazem Hcl Coated Beads (Cartia Xt), 300 MG PO DAILY Ezetimibe (Zetia), 10 MG PO DAILY Gabapentin (Neurontin), 300 MG PO TID Insulin Glargine (Lantus Solostar), 35 UNITS SC DAILY Insulin Lispro (Human) (Humalog), 6 UNITS SQ TID Levetiracetam (Keppra), 1,500 MG PO BID Levofloxacin (Levaquin), 500 MG PO DAILY Metoprolol Succ (Toprol Xl) (Toprol-Xl), 50 MG PO DAILY Pantoprazole (Protonix), 40 MG PO DAILY Potassium Ext Rel (Klor-Con), 20 MEQ PO BID Sertraline (Zoloft), 100 MG PO QAM Tamsulosin HCl (Tamsulosin HCl), 0.4 MG PO BID Current Inpatient Medications Current Inpatient Medications Medications (Trade) Dose Ordered Sig/Lea Route Start Time Stop Time Status Last Admin Dose Admin Ioversol (Optiray 320) 100 ml UD PRN IV 07/06/17 10:45 07/10/17 10:44 Acetaminophen (Tylenol Tab) 650 mg Q4H PRN PO 07/06/17 13:30 08/05/17 13:29 Al Hydrox/Mg Hydrox/Simethicone (Maalox Max Susp) 15 ml Q4H PRN PO 07/06/17 13:30 08/05/17 13:29 Magnesium Hydroxide (Milk Of Magnesia Susp) 30 ml Q12H PRN PO 07/06/17 13:30 08/05/17 13:29 Ondansetron HCl (Zofran Inj) 4 mg Q6H PRN IV 07/06/17 13:30 08/05/17 13:29 07/06/17 14:26 4 MG Nitroglycerin (Nitrostat Tab) 0.4 mg UD PRN SL 07/06/17 13:30 08/05/17 13:29 Aspirin (Ecotrin Tab) 81 mg DAILY PO 07/07/17 09:00 08/06/17 08:59 07/07/17 08:20 81 MG Diltiazem HCl (Cardizem Cd Cap) 300 mg DAILY PO 07/07/17 09:00 08/06/17 08:59 07/07/17 08:20 300 MG EZETIMIBE (Zetia Tab) 10 mg DAILY PO 07/07/17 09:00 08/06/17 08:59 07/07/17 08:22 10 MG Gabapentin (Neurontin Cap) 300 mg TID PO 07/06/17 16:00 08/05/17 15:59 07/07/17 08:21 300 MG Metoprolol Succinate (Toprol Xl Tab) 50 mg DAILY PO 07/07/17 09:00 08/06/17 08:59 07/07/17 08:22 50 MG Pantoprazole Sodium (Protonix Tab) 40 mg DAILY PO 07/07/17 09:00 08/06/17 08:59 07/07/17 08:21 40 MG Tamsulosin HCl (Flomax Cap) 0.4 mg BID PO 07/06/17 21:00 08/05/17 20:59 07/07/17 08:20 0.4 MG Piperacillin Sod/ Tazobactam Sod 4.5 gm/Dextrose 120 ml @ 30 mls/hr Q8H IV 07/06/17 20:00 07/16/17 13:59 07/07/17 04:00 30 MLS/HR Morphine Sulfate (MoRPHine SULFATE INJ) 2 mg Q3HWA PRN IV 07/06/17 13:30 07/20/17 13:29 07/07/17 08:38 2 MG Levetiracetam (Keppra Tab) 1,500 mg BID PO 07/06/17 21:00 08/05/17 20:59 07/07/17 08:21 1,500 MG Sertraline HCl (Zoloft Tab) 100 mg QAM PO 07/07/17 09:00 08/06/17 08:59 07/07/17 08:22 100 MG Piperacillin Sod/ Tazobactam Sod (Consult) 1 ea UD PRN N/A 07/06/17 13:45 08/05/17 13:44 Heparin Sodium/ Dextrose 500 ml @ 24 mls/hr [id number] PRN IV 07/06/17 15:15 08/05/17 15:14 07/06/17 23:01 24 MLS/HR Sodium Chloride 1,000 ml @ 75 mls/hr [id number] ONCE IV 07/06/17 23:45 07/07/17 13:04 07/07/17 00:14 75 MLS/HR Glucose (Glucose 40% Gel) 15-30 GRAMS 15 GRAMS... UD PRN PO 07/06/17 23:45 08/05/17 23:44 Glucose (Glucose Chew Tab) 4-8 Tablets 4 Tabl... UD PRN PO 07/06/17 23:45 08/05/17 23:44 Dextrose (Dextrose 50% 50ML Syringe) 25-50ML OF 50% DW IV FOR... UD PRN IV 07/06/17 23:45 08/05/17 23:44 Glucagon (Glucagon Inj) 1 mg UD PRN SQ 07/06/17 23:45 08/05/17 23:44 Insulin Aspart (novoLOG ASPART) SLIDING SCALE If C... ACHS SC 07/07/17 11:00 08/06/17 06:59 07/07/17 08:27 9 UNITS Insulin Glargine (Lantus Solostar Pen) 25 units BID SC 07/07/17 21:00 08/06/17 08:59 Finasteride (Proscar Tab) 5 mg QAM PO 07/07/17 10:00 08/06/17 09:59 UNV Review of Systems Abdomen: + pain Genitourinary - Male: + dysuria, + urinary retention Physical Exam Date Time Temp Pulse Resp B/P (MAP) Pulse Ox O2 Delivery O2 Flow Rate FiO2 07/07/17 08:00 96 Room Air 07/07/17 07:35 36.7 75 17 101/75 (84) 96 Room Air 07/07/17 04:17 36.7 92 19 101/75 (84) 92 Room Air 07/07/17 04:00 Room Air 07/07/17 00:20 36.6 81 20 118/71 (87) 93 Room Air 07/07/17 00:00 Room Air 07/06/17 20:00 Room Air 07/06/17 19:06 36.1 91 18 134/75 (94) 92 Room Air 07/06/17 16:00 99 Nasal Cannula 2.0 07/06/17 15:45 36.5 72 24 110/70 (83) 99 Nasal Cannula 2.0 07/06/17 13:38 96 18 115/74 100 Room Air 07/06/17 13:15 98 Nasal Cannula 2.0 07/06/17 11:51 103 18 131/93 98 Nasal Cannula 2.0 General Appearance: no apparent distress Head: normocephalic, atraumatic Eyes: EOMI, sclerae normal ENT: hearing grossly normal Neck: supple, no JVD Respiratory/Chest: no respiratory distress, no accessory muscle use Cardiovascular: + irregularly irregular Abdomen/GI: soft, + pertinent finding (ambika fluid with tinge of bile coming out umbilical incision) Neurologic/Psych: alert, oriented x 3 Skin: normal color, warm/dry, no rash Laboratory Results Last 24 Hours Test 07/06/17 16:10 07/06/17 20:01 07/06/17 21:14 07/06/17 23:36 Bedside Glucose 222 mg/dl 299 mg/dl 242 mg/dl Activated Partial Thromboplast Time 39.6 SECONDS Partial Thromboplastin Ratio 1.5 Test 07/07/17 04:30 07/07/17 06:36 07/07/17 09:16 White Blood Count 8.27 K/uL Red Blood Count 4.39 M/uL Hemoglobin 13.4 g/dL Hematocrit 38.9 % Mean Corpuscular Volume 88.6 fL Mean Corpuscular Hemoglobin 30.5 pg Mean Corpuscular Hemoglobin Concent 34.4 g/dl Platelet Count 264 K/uL Mean Platelet Volume 8.9 fL Neutrophils (%) (Auto) 76.7 % Lymphocytes (%) (Auto) 8.9 % Monocytes (%) (Auto) 8.3 % Eosinophils (%) (Auto) 5.0 % Basophils (%) (Auto) 0.4 % Neutrophils # (Auto) 6.34 K/uL Lymphocytes # (Auto) 0.74 K/uL Monocytes # (Auto) 0.69 K/uL Eosinophils # (Auto) 0.41 K/uL Basophils # (Auto) 0.03 K/uL RDW Standard Deviation 44.0 fL RDW Coefficient of Variation 13.5 % Immature Granulocyte % (Auto) 0.7 % Immature Granulocyte # (Auto) 0.06 K/uL Activated Partial Thromboplast Time 59.9 SECONDS Partial Thromboplastin Ratio 2.3 Sodium Level 137 mmol/L 137 mmol/L Potassium Level 3.9 mmol/L 3.5 mmol/L Chloride Level 99 mmol/L 99 mmol/L Carbon Dioxide Level 32 mmol/L 33 mmol/L Anion Gap 6.0 mmol/L 5.0 mmol/L Blood Urea Nitrogen 14 mg/dl 11 mg/dl Creatinine 0.68 mg/dl 0.77 mg/dl Est Creatinine Clear Calc Drug Dose 123.2 ml/min 107.9 ml/min Estimated GFR () 109.8 104.3 Estimated GFR (Non- 94.7 90.0 BUN/Creatinine Ratio 20.0 14.0 Random Glucose 268 mg/dl 218 mg/dl Calcium Level 7.8 mg/dl 8.1 mg/dl Magnesium Level 2.1 mg/dl 2.0 mg/dl Bedside Glucose 267 mg/dl Assessment & Plan s/p lap moreno with biliary leak ercp/stent already done no drainable fluid in abdomen on recent ct cont current tx. should resolve completely with time pt will f/u with his surgeon after d/c urology managing urologic issues discussed with primary service, cardiology,and urology.
[2017-07-07] MEDS ORDERED: POTASSIUM CHLORIDE 10 MEQ TABCR PO STA (11:13)
[2017-07-07] MEDS: FINASTERIDE 5 MG TAB PO SCH (12:02)
[2017-07-07] MEDS: HEPARIN 25,000 UNIT/500ML D5W 500 ML IV PRN (14:19)
[2017-07-07] MEDS ORDERED: WARFARIN SOD 5 MG TAB PO SCH (16:00)
--- NOTE | 2017-07-07 18:23 | Progress Note ---
Internal Med Progress Note Date of Service: Jul 07, 2017. Provider Documentation: SUBJECTIVE: resting comfortably eating fine no abdominal pain no nausea afebrile no chest pain or sob OBJECTIVE: Vital Signs-as noted below Exam: General-alert and awake. not in distress ENT-normal hearing Neck-no neck masses supple Lungs-cta b/l no wheezing or crackles Heart-s1 and s2 heard regular rate and rhythm no murmurs Abdomen-soft bowel sounds present non tender no distension s/p colostomy Extremities-no erythema pedal edema present Neuro-alert and awake moves extremities non focal Lab data as noted below. ASSESSMENT & PLAN: This is a 72-year-old male who presents with urinary retention, prostate abscess. 1. Urinary retention, possible prostate abscess. Started on IV Zosyn. The patient is on Vargas catheter, seen by urology. If no improvement plan for MR and possible drainage, monitor in the tele floor. Doing fine. To continue current tx for now and monitor. 2. Atrial fibrillation diagnosed last year but no regular followup. Was in rapid Afib in the [facility] and transferred to [place]. Currently on Cardizem and metoprolol. Could not tolerate Eliquis. Medication adjustments as per cardiology starting on Coumadin. 3. Recent cholecystectomy with complications, colostomy bag and biliary stent placement. Need followup. CAT scan showed some possible seroma vs infection abdominal wall. Appreciate surgery inputs. 4. Diabetes. Continue home Lantus. Will place him on insulin sliding scale.Will monitor. 5. History of seizures. Continue Keppra. 6. History of benign prostatic hypertrophy. Continue Flomax. adding Proscar. 7. History of hyperlipidemia. Continue Zetia. 8. History of hypertension. Continue metoprolol . will monitor. 9. History of depression. Continue Zoloft. 10. Deep venous thrombosis prophylaxis, scds DISPOSITION to be determined Vital Signs: Date Time Temp Pulse Resp B/P (MAP) Pulse Ox O2 Delivery O2 Flow Rate FiO2 07/07/17 16:00 96 Room Air 07/07/17 15:14 37.0 73 16 115/59 (77) 92 Room Air 07/07/17 12:09 36.5 91 19 129/64 (85) 98 07/07/17 12:00 95 Room Air 07/07/17 08:00 96 Room Air 07/07/17 07:35 36.7 75 17 101/75 (84) 96 Room Air 07/07/17 04:17 36.7 92 19 101/75 (84) 92 Room Air 07/07/17 04:00 Room Air 07/07/17 00:20 36.6 81 20 118/71 (87) 93 Room Air 07/07/17 00:00 Room Air 07/06/17 20:00 Room Air 07/06/17 19:06 36.1 91 18 134/75 (94) 92 Room Air Lab Results: Results Past 24 Hours Test 07/06/17 20:01 07/06/17 21:14 07/06/17 23:36 07/07/17 04:30 Range/Units Bedside Glucose 299 242 70-99 mg/dl Activated Partial Thromboplast Time 39.6 59.9 21.0-31.0 SECONDS Partial Thromboplastin Ratio 1.5 2.3 White Blood Count 8.27 4.8-10.8 K/uL Red Blood Count 4.39 4.7-6.1 M/uL Hemoglobin 13.4 14.0-18.0 g/dL Hematocrit 38.9 42-52 % Mean Corpuscular Volume 88.6 80-100 fL Mean Corpuscular Hemoglobin 30.5 25-34 pg Mean Corpuscular Hemoglobin Concent 34.4 32-36 g/dl Platelet Count 264 130-400 K/uL Mean Platelet Volume 8.9 7.4-10.4 fL Neutrophils (%) (Auto) 76.7 % Lymphocytes (%) (Auto) 8.9 % Monocytes (%) (Auto) 8.3 % Eosinophils (%) (Auto) 5.0 % Basophils (%) (Auto) 0.4 % Neutrophils # (Auto) 6.34 1.4-6.5 K/uL Lymphocytes # (Auto) 0.74 1.2-3.4 K/uL Monocytes # (Auto) 0.69 0.11-0.59 K/uL Eosinophils # (Auto) 0.41 0-0.5 K/uL Basophils # (Auto) 0.03 0-0.2 K/uL RDW Standard Deviation 44.0 36.4-46.3 fL RDW Coefficient of Variation 13.5 11.5-14.5 % Immature Granulocyte % (Auto) 0.7 % Immature Granulocyte # (Auto) 0.06 0.00-0.02 K/uL Sodium Level 137 136-145 mmol/L Potassium Level 3.9 3.5-5.1 mmol/L Chloride Level 99 98-107 mmol/L Carbon Dioxide Level 32 21-32 mmol/L Anion Gap 6.0 3-11 mmol/L Blood Urea Nitrogen 14 7-18 mg/dl Creatinine 0.68 0.60-1.40 mg/dl Est Creatinine Clear Calc Drug Dose 123.2 ml/min Estimated GFR () 109.8 Estimated GFR (Non- 94.7 BUN/Creatinine Ratio 20.0 10-20 Random Glucose 268 70-99 mg/dl Calcium Level 7.8 8.5-10.1 mg/dl Magnesium Level 2.1 1.8-2.4 mg/dl Test 07/07/17 06:36 07/07/17 09:16 07/07/17 11:24 07/07/17 16:11 Range/Units Bedside Glucose 267 135 113 70-99 mg/dl Sodium Level 137 136-145 mmol/L Potassium Level 3.5 3.5-5.1 mmol/L Chloride Level 99 98-107 mmol/L Carbon Dioxide Level 33 21-32 mmol/L Anion Gap 5.0 3-11 mmol/L Blood Urea Nitrogen 11 7-18 mg/dl Creatinine 0.77 0.60-1.40 mg/dl Est Creatinine Clear Calc Drug Dose 107.9 ml/min Estimated GFR () 104.3 Estimated GFR (Non- 90.0 BUN/Creatinine Ratio 14.0 -20 Random Glucose 218 70-99 mg/dl Calcium Level 8.1 8.5-10.1 mg/dl Magnesium Level 2.0 1.8-2.4 mg/dl
[2017-07-07] MEDS: INSULIN GLARGINE SOLOSTAR 100 UNITS/ML 3 ML PEN SC SCH (20:26)
[2017-07-07] MEDS ORDERED: METOPROLOL SUCC 25MG EXT REL TAB PO SCH (21:00)
--- NOTE | 2017-07-07 22:39 | CARDIOLOGY CONSULTATION ---
DATE OF CONSULTATION: 07/07/2017 REFERRING PHYSICIAN: Dr. Saunders. INDICATIONS: Atrial fibrillation. HISTORY OF PRESENT ILLNESS: The patient is a 72-year-old male whose history is notable for chronic seizure disorder, hypertension, hyperlipidemia; type 2 diabetes mellitus, insulin requiring; obstructive sleep apnea status post uvulectomy and chronic O2 supplementation who had recent complex history which included presentation with cholelithiasis, ultimately undergone cholecystectomy at [facility]. Postoperative course notable for recurrence of symptoms with incisional hernia and bowel obstruction. he underwent second surgery and then was transferred to [facility] with atrial fibrillation with rapid ventricular response. At that time, he was found to have a bile acid leak as well as urinary retention, probably urinary tract infection, per quick summation over records. The patient does carry a history from his own description of having had atrial fibrillation documented a year ago, uncertain whether this represented chronic versus paroxysmal event. While in hospital of [facility], he was begun on rate control therapies with Toprol and diltiazem and ultimately was discharged on Eliquis at time of release after complex course which included bilateral biliary stent placement. The patient presents now once again with complex symptoms which include urinary retention and possible prostate abscess. On presentation, he was found to be in atrial fibrillation with mildly elevated overall heart rate 90-105. He was not aware of his arrhythmias. Notes since hospital discharge Eliquis was discontinued due to ecchymotic changes of the arm, possible purpura. He is referred now for management of atrial fibrillation, on anticoagulation. Currently denies fevers or chills. Notes abdominal distention and pain is much improved. Notes no sense of tachypalpitations or irregular heart rhythm. Notes no headache or visual changes. Denies prior history of TIA or stroke, rheumatic fever or scarlet fever. Notes no bleeding disorder, melena, hematochezia, dysuria or hematuria, currently. PAST MEDICAL HISTORY: As per HPI. In addition, he carries a history of biopsy-proven peripheral myopathy with enzyme deficiency with mild restriction in activity tolerance. ALLERGIES: MULTIPLE AND INCLUDE ALL STATINS, CARBAMAZEPINE, METFORMIN, METHADONE AND TRAMADOL AND PROPOXYPHENE. PAST SURGICAL HISTORY: Notable for remote appendectomy, prior lipoma resection, cataract extraction, carpal tunnel release; as noted, laparoscopic cholecystectomy in 06/21/2017 with complicated course including biliary leak and incisional bowel herniorrhaphy with bowel obstruction. FAMILY HISTORY: Not specifically notable for cardiac disease. SOCIAL HISTORY: The patient resides in [place]. 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 He is a nonsmoker for greater than 15 years and uses rare alcoholic beverages. PHYSICAL EXAMINATION: GENERAL: The patient is a pleasant, age-appropriate male currently denying any acute distress. VITAL SIGNS: Heart rate 75, blood pressure is 101/75. He is afebrile at 36.7. Telemetry reveals atrial fibrillation with intermittently elevated ventricular response rates. HEENT: Normocephalic, atraumatic. Nares without discharge. Throat was clear. NECK: Supple without thyromegaly or lymphadenopathy. LUNGS: Notable for diminished breath sounds but are predominantly clear. CARDIOVASCULAR: Irregularly irregular There is no S3 gallop. ABDOMEN: Obese, soft. There is drainage out of the umbilical incision with ostomy bag covering EXTREMITIES: Without cyanosis or clubbing. There is 2+ dense dully lower extremity edema. LABORATORY DATA: On presentation, white cell count was 14.5, this morning of 8.2 with hemoglobin of 13.4. Sodium is 137, potassium is 3.5, chloride is 99, bicarbonate is 33, BUN is 11, and creatinine is 0.77. Albumin on presentation was 2.5 with total protein of 6.2. IMAGING DATA: Chest x-ray reveals no pulmonary edema. Abdominal CT on presentation revealed findings consistent with evolving changes of cholecystectomy, prostatomegaly with possible findings consistent with infection. EKG this morning reveals atrial fibrillation, heart rate 93, no ST segment changes or Q-waves. IMPRESSION: A 72-year-old male with complex history surrounding abdominal surgeries and urinary issues after prior cholecystectomy on 06/21/2017 complicated by biliary leak, incisional dehiscence as well as acute urologic issues. He currently has atrial fibrillation with controlled ventricular response rate, duration is uncertain, but appears to have begun at least 1 year ago. During hospitalization, medications were increased for rate and rhythm control and anticoagulation initially initiated with Eliquis with possible intolerance. RECOMMENDATIONS: Continue heparin with conversion to Coumadin if there are no surgical or urologic contraindications to doing so. We will optimize rate control therapies. Diltiazem may be leading to fluid retention. Will plan on increasing Toprol and reducing diltiazem, possibly discontinuing altogether. For ultimate rate control, echocardiogram will be ordered here. Laboratory studies were reviewed and demonstrate significant reduced albumin and protein levels consistent with a complex surgical history. Will follow patient in the hospital. GOLDY
[2017-07-08 00:11] VITALS: BP 126/75; PULSE 87; TEMP 36.8; O2SAT 93
[2017-07-08 04:18] VITALS: BP 113/46; PULSE 77; TEMP 36.6; O2SAT 92
[2017-07-08 04:34] LABS: BASO % 0.4 %; BASO ABS # 0.03 K/uL (0-0.2); COMPLETE YES; HEMATOCRIT 37.5 % (42-52); IG% 0.6 %; LYMPH % 11.7 %; LYMPH ABS # 0.98 K/uL (1.2-3.4); MEAN CELL VOLUME 89.5 fL (80-100); MEAN CORPUSCULAR HEMOGLOBIN 29.6 pg (25-34); MEAN CORPUSCULAR HGB CONC 33.1 g/dl (32-36); MEAN PLATELET VOLUME 8.9 fL (7.4-10.4); MONO % 7.3 %; PLATELET COUNT 241 K/uL (130-400); RED BLOOD COUNT 4.19 M/uL (4.7-6.1); WHITE BLOOD COUNT 8.36 K/uL (4.8-10.8)
[2017-07-08] MEDS: PIPERACILL/TAZOBAC IV 4.5 GM in DEXTROSE 5% 100ML 100 ML IV SCH (04:36)
[2017-07-08 04:51] LABS: PARTIAL THROMBOPLASTIN RATIO 1.8; PROTHROMBIN TIME (PATIENT) 10.9 SECONDS (9.0-12.0)
[2017-07-08 05:02] LABS: BUN/CREATININE RATIO 13.4 (10-20); CALCIUM 7.9 mg/dl (8.5-10.1); CREATININE 0.63 mg/dl (0.60-1.40); POTASSIUM 4.2 mmol/L (3.5-5.1)
[2017-07-08] MEDS: INSULIN ASPART 100 UNITS/ML 3 ML PEN SC SCH ×2 (07:34→11:59)
--- NOTE | 2017-07-08 07:43 | Surgery Progress Note ---
Surgery Progress Note Date of Service Jul 08, 2017. Subjective + feeling well pt feeling well/no complaints. Objective Vital Signs: Date Time Temp Pulse Resp B/P (MAP) Pulse Ox O2 Delivery O2 Flow Rate FiO2 07/08/17 04:18 36.6 77 19 113/46 (68) 92 Room Air 07/08/17 04:00 Room Air 07/08/17 00:11 36.8 87 20 126/75 (92) 93 Room Air 07/07/17 23:59 Room Air 07/07/17 20:00 Room Air 07/07/17 19:02 36.7 86 16 120/66 (84) 93 Room Air 07/07/17 16:00 96 Room Air 07/07/17 15:14 37.0 73 16 115/59 (77) 92 Room Air 07/07/17 12:09 36.5 91 19 129/64 (85) 98 07/07/17 12:00 95 Room Air 07/07/17 08:00 96 Room Air General Appearance: no apparent distress Head: normocephalic, atraumatic Respiratory/Chest: no respiratory distress, no accessory muscle use Abdomen: non tender, soft Laboratory Results: Results Past 24 Hours Test 07/07/17 09:16 07/07/17 11:24 07/07/17 16:11 07/07/17 20:11 Range/Units Sodium Level 137 136-145 mmol/L Potassium Level 3.5 3.5-5.1 mmol/L Chloride Level 99 98-107 mmol/L Carbon Dioxide Level 33 21-32 mmol/L Anion Gap 5.0 3-11 mmol/L Blood Urea Nitrogen 11 7-18 mg/dl Creatinine 0.77 0.60-1.40 mg/dl Est Creatinine Clear Calc Drug Dose 107.9 ml/min Estimated GFR () 104.3 Estimated GFR (Non- 90.0 BUN/Creatinine Ratio 14.0 10-20 Random Glucose 218 70-99 mg/dl Calcium Level 8.1 8.5-10.1 mg/dl Magnesium Level 2.0 1.8-2.4 mg/dl Bedside Glucose 135 113 155 70-99 mg/dl Test 07/08/17 04:23 07/08/17 06:48 Range/Units White Blood Count 8.36 4.8-10.8 K/uL Red Blood Count 4.19 4.7-6.1 M/uL Hemoglobin 12.4 14.0-18.0 g/dL Hematocrit 37.5 42-52 % Mean Corpuscular Volume 89.5 80-100 fL Mean Corpuscular Hemoglobin 29.6 25-34 pg Mean Corpuscular Hemoglobin Concent 33.1 32-36 g/dl Platelet Count 241 130-400 K/uL Mean Platelet Volume 8.9 7.4-10.4 fL Neutrophils (%) (Auto) 75.0 % Lymphocytes (%) (Auto) 11.7 % Monocytes (%) (Auto) 7.3 % Eosinophils (%) (Auto) 5.0 % Basophils (%) (Auto) 0.4 % Neutrophils # (Auto) 6.27 1.4-6.5 K/uL Lymphocytes # (Auto) 0.98 1.2-3.4 K/uL Monocytes # (Auto) 0.61 0.11-0.59 K/uL Eosinophils # (Auto) 0.42 0-0.5 K/uL Basophils # (Auto) 0.03 0-0.2 K/uL RDW Standard Deviation 44.2 36.4-46.3 fL RDW Coefficient of Variation 13.4 11.5-14.5 % Immature Granulocyte % (Auto) 0.6 % Immature Granulocyte # (Auto) 0.05 0.00-0.02 K/uL Prothrombin Time 10.9 9.0-12.0 SECONDS Prothromb Time International Ratio 1.0 0.9-1.1 Activated Partial Thromboplast Time 47.1 21.0-31.0 SECONDS Partial Thromboplastin Ratio 1.8 Sodium Level 141 136-145 mmol/L Potassium Level 4.2 3.5-5.1 mmol/L Chloride Level 103 98-107 mmol/L Carbon Dioxide Level 34 21-32 mmol/L Anion Gap 4.0 3-11 mmol/L Blood Urea Nitrogen 8 7-18 mg/dl Creatinine 0.63 0.60-1.40 mg/dl Est Creatinine Clear Calc Drug Dose 131.9 ml/min Estimated GFR () 113.3 Estimated GFR (Non- 97.8 BUN/Creatinine Ratio 13.4 10-20 Random Glucose 185 70-99 mg/dl Calcium Level 7.9 8.5-10.1 mg/dl Magnesium Level 2.0 1.8-2.4 mg/dl Bedside Glucose 153 70-99 mg/dl Assessment & Plan doing well from surgery abdominal fluid output appears to be decreasing ruben diet ok for d/c from surgery perspective f/u with his surgeon after d/c
[2017-07-08 08:00] VITALS: BP 116/74; PULSE 70; TEMP 36.5; O2SAT 94
[2017-07-08 08:20] VITALS: O2SAT 94
[2017-07-08] MEDS: EZETIMIBE 10MG TAB PO SCH (08:50)
[2017-07-08] MEDS: ASPIRIN 81 MG ECTAB PO SCH (08:50)
[2017-07-08] MEDS: GABAPENTIN 300 MG CAP PO SCH (08:51)
[2017-07-08] MEDS: METOPROLOL SUCC 50MG EXT REL TAB PO SCH (08:51)
[2017-07-08] MEDS: PANTOprazole SOD 40 MG TAB PO SCH (08:51)
[2017-07-08] MEDS: TAMSULOSIN HCL 0.4 MG CAP PO SCH (08:52)
[2017-07-08] MEDS: SERTRALINE HCL 100 MG TAB PO SCH (08:52)
[2017-07-08] MEDS: FINASTERIDE 5 MG TAB PO SCH (08:52)
[2017-07-08] MEDS: LEVETIRACETAM 500 MG TAB PO SCH (08:53)
[2017-07-08] MEDS: INSULIN GLARGINE SOLOSTAR 100 UNITS/ML 3 ML PEN SC SCH (08:56)
--- NOTE | 2017-07-08 09:41 | Progress Note ---
Subjective Date of Service: Jul 08, 2017. Subjective Pt evaluation today including: conversation w/ patient, chart review, lab review Voiding: manzo catheter in place (patent, draining clear, yellow urine) 72 yo male with prostatitis/prostatic abscess, incomplete bladder emptying. Pt reports he is feeling better today. Denies pain or hematuria. Remains on Zosyn. Manzo remains in place draining clear, yellow urine. Problem List Medical Problems: (1) Abdominal pain Status: Acute Review of Systems Constitutional: No fever, No chills Respiratory: No shortness of breath Cardiac: No chest pain Abdomen: No pain, No nausea, No vomiting Male : No hematuria Heme: No abnormal bleeding/bruising Objective Vital Signs Date Time Temp Pulse Resp B/P (MAP) Pulse Ox O2 Delivery O2 Flow Rate FiO2 07/08/17 09:23 Room Air 07/08/17 08:20 94 Room Air 07/08/17 08:00 36.5 70 16 116/74 (88) 94 Room Air 07/08/17 04:18 36.6 77 19 113/46 (68) 92 Room Air 07/08/17 04:00 Room Air 07/08/17 00:11 36.8 87 20 126/75 (92) 93 Room Air 07/07/17 23:59 Room Air 07/07/17 20:00 Room Air 07/07/17 19:02 36.7 86 16 120/66 (84) 93 Room Air 07/07/17 16:00 96 Room Air 07/07/17 15:14 37.0 73 16 115/59 (77) 92 Room Air 07/07/17 12:09 36.5 91 19 129/64 (85) 98 07/07/17 12:00 95 Room Air Physical Exam General Appearance: no apparent distress Eyes: normal inspection ENT: hearing grossly normal Neck: no JVD Respiratory/Chest: no respiratory distress, no accessory muscle use Cardiovascular: no JVD Extremities: normal inspection Neurologic/Psychiatric: alert, normal mood/affect, oriented x 3 Skin: normal color Laboratory Results Last 24 Hours Test 07/07/17 11:24 07/07/17 16:11 07/07/17 20:11 07/08/17 04:23 Bedside Glucose 135 mg/dl 113 mg/dl 155 mg/dl White Blood Count 8.36 K/uL Red Blood Count 4.19 M/uL Hemoglobin 12.4 g/dL Hematocrit 37.5 % Mean Corpuscular Volume 89.5 fL Mean Corpuscular Hemoglobin 29.6 pg Mean Corpuscular Hemoglobin Concent 33.1 g/dl Platelet Count 241 K/uL Mean Platelet Volume 8.9 fL Neutrophils (%) (Auto) 75.0 % Lymphocytes (%) (Auto) 11.7 % Monocytes (%) (Auto) 7.3 % Eosinophils (%) (Auto) 5.0 % Basophils (%) (Auto) 0.4 % Neutrophils # (Auto) 6.27 K/uL Lymphocytes # (Auto) 0.98 K/uL Monocytes # (Auto) 0.61 K/uL Eosinophils # (Auto) 0.42 K/uL Basophils # (Auto) 0.03 K/uL RDW Standard Deviation 44.2 fL RDW Coefficient of Variation 13.4 % Immature Granulocyte % (Auto) 0.6 % Immature Granulocyte # (Auto) 0.05 K/uL Prothrombin Time 10.9 SECONDS Prothromb Time International Ratio 1.0 Activated Partial Thromboplast Time 47.1 SECONDS Partial Thromboplastin Ratio 1.8 Sodium Level 141 mmol/L Potassium Level 4.2 mmol/L Chloride Level 103 mmol/L Carbon Dioxide Level 34 mmol/L Anion Gap 4.0 mmol/L Blood Urea Nitrogen 8 mg/dl Creatinine 0.63 mg/dl Est Creatinine Clear Calc Drug Dose 131.9 ml/min Estimated GFR () 113.3 Estimated GFR (Non- 97.8 BUN/Creatinine Ratio 13.4 Random Glucose 185 mg/dl Calcium Level 7.9 mg/dl Magnesium Level 2.0 mg/dl Test 07/08/17 06:48 07/08/17 08:31 Bedside Glucose 153 mg/dl Assessment and Plan A/P: Prostatitis, ? prostatic abscess, incomplete bladder emptying AFVSS. Pt clinically improving. OK for d/c home from perspective. Recommend d/c home with manzo catheter. Will plan for outpatient trial of void later this week or early next week. Recommend transitioning to 4 weeks of oral abx such as Cipro or Bactrim to fully tx for prostatitis prior to d/c home. Continue finasteride and tamsulosin at home as well. Will arrange for outpatient f/u with Dr. Weinstein. Thanks for allowing us to participate in this pt's care. Recall PRN issues. Discharge planning: home
[2017-07-08] MEDS: HEPARIN 25,000 UNIT/500ML D5W 500 ML IV PRN (10:48)
[2017-07-08 11:09] VITALS: BP 139/63; PULSE 70; TEMP 37; O2SAT 94
[2017-07-08] MEDS ORDERED: PIPERACILL/TAZOBAC IV 3.375 GM in DEXTROSE 5% 100ML IV SCH (12:00)
--- NOTE | 2017-07-08 12:01 | PROGRESS NOTE ---
DATE: 07/08/2017 CARDIOLOGY CONSULTATION FOLLOWUP NOTE The patient seen and examined. Chart, medications, telemetry reviewed. SUBJECTIVE: The patient feels substantially improved this morning. Notes no fevers, chills. Notes no abdominal pain and mild burning at urinary areas though substantially improved. Has an indwelling Vargas catheter. Notes no tachypalpitations, syncope or near syncope. Telemetry reveals conversion to sinus rhythm overnight. Appetite is good. OBJECTIVE: VITAL SIGNS: Heart rate is 70, blood pressure is 139/63. Telemetry reveals a sinus rhythm with atrial ectopic beats. NECK: Thin. There is no jugular venous distention. No carotid bruits. LUNGS: Clear to auscultation. CARDIOVASCULAR: Regular. There is no S3 gallop. ABDOMEN: Soft with mild distention. There is no rebound or guarding. EXTREMITIES: Reveal 1+ lower extremity edema. LABORATORY DATA: White cell count is 8.3, hemoglobin is 12.4. Sodium is 141, potassium is 4.2, chloride is 103, bicarbonate is 34, BUN is 8, and creatinine 0.63. IMPRESSION: A 72-year-old male with issues as follows: Paroxysmal atrial fibrillation, historically with recent exacerbation during acute illness, today in sinus rhythm. RECOMMENDATIONS: 1. Continue Toprol 50 mg twice per day. Would discontinue diltiazem altogether. Continue anticoagulation to be initiated as an outpatient with oral warfarin. We will make arrangements for cardiology followup in the next months' time. 2. Recent abdominal surgery and urologic issues driving heart rate issues, now under therapies.
[2017-07-08] MEDS ORDERED: PRS5 PO ×2 (13:09→13:11)
[2017-07-08] MEDS ORDERED: TRAM-10 PO (13:09)
[2017-07-08] MEDS ORDERED: LCTX PO ×2 (13:09→13:11)
[2017-07-08] MEDS ORDERED: TPRSR50 PO ×2 (13:09→13:11)
[2017-07-08] MEDS ORDERED: PHEN-775 PO ×2 (13:09→13:11)
[2017-07-08] MEDS ORDERED: CIPR-255 PO ×2 (13:09→13:11)
[2017-07-08] MEDS ORDERED: WARF1TAB PO ×2 (13:09→13:11)
[2017-07-08] MEDS ORDERED: WARF5TAB90 PO ×2 (13:09→13:11)
--- NOTE | 2017-07-08 13:25 | Discharge Instructions ---
Discharge Instructions Date of Service Jul 08, 2017. Admission Reason for Admission: Atrial Fibrillation; Prostate Abscess Discharge Discharge Diagnosis / Problem: PROSTRATE ABSCESS, A FIB Discharge Goals Goal(s): Decrease discomfort, Improve function Activity Recommendations Activity Limitations: per Instructions/Follow-up section (NO STRENOUS ACTIVITY UNTIL SEEN BY SURGERY, GI AND CARDIOLOGY) Lifting Limitations: no more than 5 pounds (UNTIL SEEN BY GI AND SURGERY) . Instructions / Follow-Up Instructions / Follow-Up FOLLOWUP WITH FAMILY DOCTOR ON July AT 2:05PM. FOLLOWUP WITH GI AND GENERAL SURGERY IN 1-2 WEEKS.FOR BILIARY STENT AND COLOSTOMY BAG. FOLLOWUP WITH UROLOGY IN ONE WEEK. ( [address] [facility] [place] [address] ). FOR PROSTRATE AND CRUZ CATHETER FOLLOWUP WITH CARDIOLOGY RODY DESHPANDE IN 3-4 WEEKS ( [address] [place] [address] ). FOR ATRIAL FIBRILLATION FOLLOWUP WITH COUMADIN CLINIC IN 2 - 3 DAYS FOR COUMADIN DOSING. COUMADIN 7MG ( ONE 5MG TAB AND TWO 1 MG TABLETS) PER ORAL DAILY IN EVENING UNTIL FURTHER INSTRUCTIONS FROM COUMADIN CLINIC. LAB: PT/INT IN 2-3 DAYS AND FOLLOW RESULTS WITH COUMADIN CLINIC. COUMADIN CLINIC NOTIFIED. LAB: CBC AND BMP WITH MG LEVELS IN ONE WEEK AND FOLLOW RESULTS WITH FAMILY DOCTOR. LAB: FOLLOWUP CEA LEVELS WITH FAMILY DOCTOR AND GI( ELEVATED?) TO CHECK BLOOD SUGARS DAILY TWO TO FOUR TIMES DAILY ( BEFORE BREAKFAST, LUNCH, DINNER AND BEFORE SLEEP) AND NOTE THE READINGS IN A LOG BOOK AND TO SHOW THEM TO FAMILY DOCTOR FOR FURTHER ADJUSTMENTS IN INSULIN REGIMEN. IF BLOOD SUGARS BELOW 80 TO DRINK ORANGE JUICE OR TAKE SUGAR AND CALL FAMILY DOCTOR. IF BLOOD SUGARS >300 CALL FAMILY DOCTOR. PLEASE GO THROUGH MEDICATION LIST CAREFULLY THERE HAS BEEN FEW CHANGES. Current Hospital Diet Patient's current hospital diet: Diabetes Type 2 Diet, AHA Diet (Heart Healthy) Discharge Diet Recommended Diet: AHA Diet (Heart Healthy), Diabetes Type 2 Diet Pending Studies Studies pending at discharge: no Laboratory Results Hemoglobin A1c Test 07/07/17 04:30 Range/Units Estimated Average Glucose 183 mg/dl Hemoglobin A1c 8.0 H 4.5-5.6 % Medical Emergencies . Who to Call and When: Medical Emergencies: If at any time you feel your situation is an emergency, please call 911 immediately. . Non-Emergent Contact Non-Emergency issues call your: Primary Care Provider . . "Provider Documentation" section prepared by Chano Saunders. . VTE Core Measure Inpt VTE Proph given/why not?: Warfarin (Coumadin), Other Anticoagulation (IV HEPARIN)
[2017-07-08 13:54] VITALS: BP 139/63; PULSE 70; TEMP 37; O2SAT 94
[2017-07-08 14:34] VITALS: Ht 180.3 cm; Wt 112.5 kg
--- NOTE | 2017-07-08 19:18 | Progress Note ---
Internal Med Progress Note Date of Service: Jul 08, 2017. Provider Documentation: SUBJECTIVE: resting comfortably eating ok denies any abdominal pain or nausea afebrile ambulating ok 'want to go home OBJECTIVE: Vital Signs-as noted below Exam: General-alert and awake. not in distress ENT-normal hearing Neck-no neck masses supple Lungs-cta b/l no wheezing or crackles Heart-s1 and s2 heard regular rate and rhythm no murmurs Abdomen-soft bowel sounds present non tender no distension s/p colostomy Extremities-no erythema pedal edema present Neuro-alert and awake moves extremities non focal Lab data as noted below. ASSESSMENT & PLAN: This is a 72-year-old male who presents with urinary retention, prostate abscess. 1. Urinary retention, possible prostate abscess. Started on IV Zosyn. The patient is on Vargas catheter, seen by urology. If no improvement plan for MR and possible drainage, monitor in the tele floor. Doing fine. cx no growth urology recommends 4 weeks of cipro and followup in one week for Vargas removal and voiding trial 2. Atrial fibrillation diagnosed last year but no regular followup. Was in rapid Afib in the [facility] and transferred to [place]. Currently on Cardizem and metoprolol. Could not tolerate Eliquis. Medication adjustments as per cardiology starting on Coumadin.stopped Cardizem . Toprol xl increased to 50mg bid. started on Coumadin followup with cardiology and Coumadin clinic. 3. Recent cholecystectomy with complications, colostomy bag and biliary stent placement. Need followup. CAT scan showed some possible seroma vs infection abdominal wall. Appreciate surgery inputs. Followup with GI and General surgery. 4. Diabetes. Continue home Lantus. Will place him on insulin sliding scale.Will monitor.d/c on home meds close followup with pcp 5. History of seizures. Continue Keppra. 6. History of benign prostatic hypertrophy. Continue Flomax. adding Proscar. 7. History of hyperlipidemia. Continue Zetia. 8. History of hypertension. Continue metoprolol . will monitor. 9. History of depression. Continue Zoloft. 10. Deep venous thrombosis prophylaxis, scds Discharged home with home health Vital Signs: Date Time Temp Pulse Resp B/P (MAP) Pulse Ox O2 Delivery O2 Flow Rate FiO2 07/08/17 13:54 37.0 70 16 94 Room Air 07/08/17 12:10 Room Air 07/08/17 11:09 37.0 70 16 139/63 (88) 94 07/08/17 09:23 Room Air 07/08/17 08:20 94 Room Air 07/08/17 08:00 36.5 70 16 116/74 (88) 94 Room Air 07/08/17 04:18 36.6 77 19 113/46 (68) 92 Room Air 07/08/17 04:00 Room Air 07/08/17 00:11 36.8 87 20 126/75 (92) 93 Room Air 07/07/17 23:59 Room Air 07/07/17 20:00 Room Air Lab Results: Results Past 24 Hours Test 07/07/17 20:11 07/08/17 04:23 07/08/17 06:48 07/08/17 08:31 Range/Units Bedside Glucose 155 153 70-99 mg/dl White Blood Count 8.36 4.8-10.8 K/uL Red Blood Count 4.19 4.7-6.1 M/uL Hemoglobin 12.4 14.0-18.0 g/dL Hematocrit 37.5 42-52 % Mean Corpuscular Volume 89.5 80-100 fL Mean Corpuscular Hemoglobin 29.6 25-34 pg Mean Corpuscular Hemoglobin Concent 33.1 32-36 g/dl Platelet Count 241 130-400 K/uL Mean Platelet Volume 8.9 7.4-10.4 fL Neutrophils (%) (Auto) 75.0 % Lymphocytes (%) (Auto) 11.7 % Monocytes (%) (Auto) 7.3 % Eosinophils (%) (Auto) 5.0 % Basophils (%) (Auto) 0.4 % Neutrophils # (Auto) 6.27 1.4-6.5 K/uL Lymphocytes # (Auto) 0.98 1.2-3.4 K/uL Monocytes # (Auto) 0.61 0.11-0.59 K/uL Eosinophils # (Auto) 0.42 0-0.5 K/uL Basophils # (Auto) 0.03 0-0.2 K/uL RDW Standard Deviation 44.2 36.4-46.3 fL RDW Coefficient of Variation 13.4 11.5-14.5 % Immature Granulocyte % (Auto) 0.6 % Immature Granulocyte # (Auto) 0.05 0.00-0.02 K/uL Prothrombin Time 10.9 9.0-12.0 SECONDS Prothromb Time International Ratio 1.0 0.9-1.1 Activated Partial Thromboplast Time 47.1 21.0-31.0 SECONDS Partial Thromboplastin Ratio 1.8 Sodium Level 141 136-145 mmol/L Potassium Level 4.2 3.5-5.1 mmol/L Chloride Level 103 98-107 mmol/L Carbon Dioxide Level 34 21-32 mmol/L Anion Gap 4.0 3-11 mmol/L Blood Urea Nitrogen 8 7-18 mg/dl Creatinine 0.63 0.60-1.40 mg/dl Est Creatinine Clear Calc Drug Dose 131.9 ml/min Estimated GFR () 113.3 Estimated GFR (Non- 97.8 BUN/Creatinine Ratio 13.4 10-20 Random Glucose 185 70-99 mg/dl Calcium Level 7.9 8.5-10.1 mg/dl Magnesium Level 2.0 1.8-2.4 mg/dl Carcinoembryonic Antigen 3.8 0-2.5 ng/ml Test 07/08/17 11:21 Range/Units Bedside Glucose 171 70-99 mg/dl
--- NOTE | 2017-07-08 19:22 | Discharge Summary ---
Discharge Summary Date of Service Jul 08, 2017. Discharge Summary Admission Date: Jul 06, 2017 at 13:26 Discharge Date: Jul 08, 2017 Discharge Disposition: Home with services Principal Diagnosis: PROSTRATE ABSCESS? A FIB Secondary Diagnoses/Problems: seizures, hypertension, hyperlipidemia, type 2 diabetes Procedures: VENOUS DOPPLER: No evidence of deep venous thrombosis. CXR: 1. Left basilar atelectasis or scarring. 2. Cardiac silhouette mildly prominent, which may be due to portable AP technique. CT ABD/PELVIS: 1. Inflammatory change in the gallbladder fossa without evidence of a fluid collection or bile leak on the today's imaging. This could be consistent with evolving postoperative changes of cholecystectomy. 2. Common bile duct stent. No biliary ductal dilatation. 3. No ostomy is appreciated. 4. Prostatomegaly with apparent fluid collection within the prostate. This raises concern for an abscess. This would be better demonstrated with contrast-enhanced MR of the prostate. Mild perivesicular fat stranding could indicate associated cystitis. Correlate with urinalysis. 5. Several superficial fluid collections in the anterior abdominal wall. These may represent seromas, although superimposed infection cannot be excluded given the adjacent fat stranding. 6. Mild anasarca. 7. 3 mm solid pulmonary nodule in the right middle lobe. Follow-up per [employer] 2017 recommendations. Consultations: UROLOGY CARDIOLOGY SURGERY Medication Reconciliation New Medications: Ciprofloxacin Hcl (Cipro) 500 Mg Tab 500 MG PO BID for 28 Days, #56 TAB Lactobacillus Acidophilus (Lactinex) Tab 2 TAB PO BID for 30 Days, #60 TAB Phenazopyridine Hcl (Pyridium) 200 Mg Tab 200 MG PO TID PRN for urinary pain for 3 Days, #9 TAB Warfarin Sodium (Coumadin) 5 Mg Tab 5 MG PO DAILY, #30 TAB 2 Refills Warfarin Sodium (Coumadin) 1 Mg Tab 2 MG PO DAILY for 30 Days, #60 TAB 2 Refills Finasteride (Finasteride) 5 Mg Tab 5 MG PO QAM, #30 TAB 2 Refills Metoprolol Succinate (Metoprolol Succinate ER) 50 Mg Tabcr 50 MG PO BID for 30 Days, #60 TABS 2 Refills Continued Medications: Aspirin (Aspirin 81) 81 Mg Tab 81 MG PO DAILY Ezetimibe (Zetia) 10 Mg Tab 10 MG PO DAILY, TAB Gabapentin (Neurontin) 300 Mg Cap 300 MG PO TID, CAP Insulin Glargine (Lantus Solostar) 100 Unit/Ml Inj 35 UNITS SC DAILY, PEN Insulin Lispro (Human) (Humalog) 100 Unit/Ml Inj 6 UNITS SQ TID Levetiracetam (Keppra) 750 Mg Tab 1500 MG PO BID, TAB Pantoprazole (Protonix) 40 Mg Tab 40 MG PO DAILY, #30 TAB Sertraline (Zoloft) 100 Mg Tab 100 MG PO QAM, TAB Tamsulosin HCl (Tamsulosin HCl) 0.4 Mg Cap 0.4 MG PO BID Discontinued Medications: Amoxicillin & Pot Clavulanate (Augmentin 875-125 mg) 1 Tab Tab 1 TAB PO BID, #14 TAB Diltiazem Hcl Coated Beads (Cartia Xt) 300 Mg Cap 300 MG PO DAILY Levofloxacin (Levaquin) 500 Mg Tab 500 MG PO DAILY for 7 Days, TAB Metoprolol Succ (Toprol Xl) (Toprol-Xl) 50 Mg Tabcr 50 MG PO DAILY, #30 TAB Potassium Ext Rel (Klor-Con) 20 Meq Tabcr 20 MEQ PO BID, TAB Admission Information HPI (per Admitting provider): : This is a 72-year-old male with past medical history significant for seizures, hypertension, hyperlipidemia, type 2 diabetes who presents with unable to urinate and abdominal pain. The patient recently on 21 of June had cholecystectomy done at [facility] from which he developed complications for which he was readmitted. He was having some abdominal pain and was reoperated and as per he had a couple of sutures came out and they had to fix it. During the hospitalization he developed a rapid atrial fibrillation and was transferred to [facility] and at [facility] he was found to have small-bowel obstruction and bowel hernia and stayed there over a week.During his stay in [place] again he developed leakage leaking around his abdominal surgery and again endoscopy was done which showed any other gall bladder duct stented. He also has a colostomy bag. The patient had Cruz catheter because he was having issues with urinary retention from enlarged prostate but today morning he woke up he and had severe abdominal pain and was not able to urinate and he was brought in here. There was problem with catheter bulb and it was fixed and he is feeling better now but CAT scan done in the ER showed possible prostate abscess so urology saw him and advised to stay in the hospital. We were called for admission. The patient currently is hemodynamically stable. Denies any headaches, no blurred vision, has sore throat from recent procedure. No difficulty swallowing. No chest pain, no shortness of breath, no cough, no fever, no chills, no nausea, no abdominal pain currently. He also developed swelling in his legs since his hospitalization, he developed some whitish rash in his lower extremities and was attributed to Eliquis which was started at [place] and was stopped. Currently resting comfortably and hemodynamically stable. Physical Exam (per Admitting): GENERAL: The patient is of moderate build, not in distress. VITAL SIGNS: Temperature 36.7, pulse 103, respiratory rate 18, blood pressure 131/93, oxygen 98 on 2 liters. HEAD, EYES, EARS, NOSE, AND THROAT: No pallor, no icterus. Pupils equal, round, and reactive to light. NECK: No JVD, no neck masses, no carotid bruits. CARDIOVASCULAR: S1, S2 heard. Regular rhythm, no murmur, no gallop. RESPIRATORY SYSTEM: Normal AP diameter. No accessory muscle use. No wheezing, no crackles. ABDOMEN: Soft, bowel sounds present. Nontender. No distention. CENTRAL NERVOUS SYSTEM: Cranial nerves II-XII grossly intact. Nonfocal. EXTREMITIES: No erythema. Lower extremity edema present, whitish papular rash seen in the lower extremities. Hospital Course This is a 72-year-old male who presents with urinary retention, prostate abscess. 1. Urinary retention, possible prostate abscess. Started on IV Zosyn. The patient is on Cruz catheter, seen by urology. If no improvement plan for MR and possible drainage, monitor in the tele floor. Doing fine. cx no growth urology recommends 4 weeks of cipro and followup in one week for Cruz removal and voiding trial 2. Atrial fibrillation diagnosed last year but no regular followup. Was in rapid Afib in the [facility] and transferred to [place]. Currently on Cardizem and metoprolol. Could not tolerate Eliquis. Medication adjustments as per cardiology starting on Coumadin.stopped Cardizem . Toprol xl increased to 50mg bid. started on Coumadin followup with cardiology and Coumadin clinic. 3. Recent cholecystectomy with complications, colostomy bag and biliary stent placement. Need followup. CAT scan showed some possible seroma vs infection abdominal wall. Appreciate surgery inputs. Followup with GI and General surgery. 4. Diabetes. Continue home Lantus. Will place him on insulin sliding scale.Will monitor.d/c on home meds close followup with pcp 5. History of seizures. Continue Keppra. 6. History of benign prostatic hypertrophy. Continue Flomax. adding Proscar. 7. History of hyperlipidemia. Continue Zetia. 8. History of hypertension. Continue metoprolol . will monitor. 9. History of depression. Continue Zoloft. 10. Deep venous thrombosis prophylaxis, scds Discharged home with home health Total time spent on discharge = 40MINUTES This includes examination of the patient, discharge planning, medication reconciliation, and communication with other providers. Discharge Instructions Discharge Instructions Date of Service Jul 08, 2017. Admission Reason for Admission: Atrial Fibrillation; Prostate Abscess Discharge Discharge Diagnosis / Problem: PROSTRATE ABSCESS, A FIB Discharge Goals Goal(s): Decrease discomfort, Improve function Activity Recommendations Activity Limitations: per Instructions/Follow-up section (NO STRENOUS ACTIVITY UNTIL SEEN BY SURGERY, GI AND CARDIOLOGY) Lifting Limitations: no more than 5 pounds (UNTIL SEEN BY GI AND SURGERY) . Instructions / Follow-Up Instructions / Follow-Up FOLLOWUP WITH FAMILY DOCTOR ON July AT 2:05PM. FOLLOWUP WITH GI AND GENERAL SURGERY IN 1-2 WEEKS.FOR BILIARY STENT AND COLOSTOMY BAG. FOLLOWUP WITH UROLOGY IN ONE WEEK. ( [address] [place] [address] ). FOR PROSTRATE AND CRUZ CATHETER FOLLOWUP WITH CARDIOLOGY RODY DESHPANDE IN 3-4 WEEKS ( [address] [place] [id number] ). FOR ATRIAL FIBRILLATION FOLLOWUP WITH COUMADIN CLINIC IN 2 - 3 DAYS FOR COUMADIN DOSING. COUMADIN 7MG ( ONE 5MG TAB AND TWO 1 MG TABLETS) PER ORAL DAILY IN EVENING UNTIL FURTHER INSTRUCTIONS FROM COUMADIN CLINIC. LAB: PT/INT IN 2-3 DAYS AND FOLLOW RESULTS WITH COUMADIN CLINIC. COUMADIN CLINIC NOTIFIED. LAB: CBC AND BMP WITH MG LEVELS IN ONE WEEK AND FOLLOW RESULTS WITH FAMILY DOCTOR. LAB: FOLLOWUP CEA LEVELS WITH FAMILY DOCTOR AND GI( ELEVATED?) TO CHECK BLOOD SUGARS DAILY TWO TO FOUR TIMES DAILY ( BEFORE BREAKFAST, LUNCH, DINNER AND BEFORE SLEEP) AND NOTE THE READINGS IN A LOG BOOK AND TO SHOW THEM TO FAMILY DOCTOR FOR FURTHER ADJUSTMENTS IN INSULIN REGIMEN. IF BLOOD SUGARS BELOW 80 TO DRINK ORANGE JUICE OR TAKE SUGAR AND CALL FAMILY DOCTOR. IF BLOOD SUGARS >300 CALL FAMILY DOCTOR. PLEASE GO THROUGH MEDICATION LIST CAREFULLY THERE HAS BEEN FEW CHANGES. Current Hospital Diet Patient's current hospital diet: Diabetes Type 2 Diet, AHA Diet (Heart Healthy) Discharge Diet Recommended Diet: AHA Diet (Heart Healthy), Diabetes Type 2 Diet Pending Studies Studies pending at discharge: no Laboratory Results Hemoglobin A1c Test 07/07/17 04:30 Range/Units Estimated Average Glucose 183 mg/dl Hemoglobin A1c 8.0 H 4.5-5.6 % Medical Emergencies . Who to Call and When: Medical Emergencies: If at any time you feel your situation is an emergency, please call 911 immediately. . Non-Emergent Contact Non-Emergency issues call your: Primary Care Provider . . "Provider Documentation" section prepared by Chano Saunders. . VTE Core Measure Inpt VTE Proph given/why not?: Warfarin (Coumadin), Other Anticoagulation (IV HEPARIN)
[2017-07-08] MEDS ORDERED: METOPROLOL SUCC 50MG EXT REL TAB PO SCH (21:00)
== END 2017-07-08 14:41 | disposition home health service (06) | DRG 728 ==
LOC: C.EDB 08:44 → EDBD 08:44 → C.2E 13:26 → ENRESERV 13:34
PROVIDERS: ADMIT Internal Medicine; ATTEND Internal Medicine
DX: N41.2 Abscess of prostate (principal); K91.872 Postprocedural seroma of a digestive system organ or structure following a digestive system procedure; T81.4XXA Infection following a procedure, initial encounter; R33.9 Retention of urine, unspecified; Y83.6 Removal of other organ (partial) (total) as the cause of abnormal reaction of the patient, or of later complication, without mention of misadventure at the time of the procedure; R10.9 Unspecified abdominal pain; L27.0 Generalized skin eruption due to drugs and medicaments taken internally; T45.515A Adverse effect of anticoagulants, initial encounter; Y92.239 Unspecified place in hospital as the place of occurrence of the external cause; I48.0 Paroxysmal atrial fibrillation; R60.0 Localized edema; N40.1 Benign prostatic hyperplasia with lower urinary tract symptoms; G40.909 Epilepsy, unspecified, not intractable, without status epilepticus; I10 Essential (primary) hypertension; E11.9 Type 2 diabetes mellitus without complications; G72.89 Other specified myopathies; E78.5 Hyperlipidemia, unspecified; F32.9 Major depressive disorder, single episode, unspecified; Z93.3 Colostomy status; Z96.0 Presence of urogenital implants; Z98.890 Other specified postprocedural states; Z87.891 Personal history of nicotine dependence; Z79.4 Long term (current) use of insulin; Z79.82 Long term (current) use of aspirin; Z79.899 Other long term (current) drug therapy